=== PATIENT | male | born 1950 | race Caucasian/White ===

== ENCOUNTER → 2016-11-02 | Outpatient (CLI) | payer BC ==
[~2016-11-02] MED LIST: ACET-1256 PO; AMR2 PO; ATOR10TA88 PO; B-COTAB18 PO; CHOL400T PO; FEBU40TA PO; GLCSR500 PO; GLIM1TAB PO; LISI20TA55 PO; LSN/2025 PO; METF500T5 PO; PRT40 PO; SITA1TAB27 PO
[2016-11-02 10:52] LABS: BASO % 0.3 %; BASO ABS # 0.02 K/uL (0-0.2); COMPLETE YES; EOS % 1.7 %; IG% 0.5 %; LYMPH % 42.4 %; LYMPH ABS # 2.53 K/uL (1.2-3.4); MEAN CELL VOLUME 84.7 fL (80-100); MEAN CORPUSCULAR HEMOGLOBIN 28.8 pg (25-34); MEAN PLATELET VOLUME 12.4 fL (7.4-10.4); MONO % 7.9 %; NEUT % 47.2 %; PLATELET COUNT 150 K/uL (130-400); WHITE BLOOD COUNT 5.97 K/uL (4.8-10.8)
[2016-11-02 11:05] LABS: ALT/SGPT 37 U/L (12-78); AST/SGOT 21 U/L (15-37); BLOOD UREA NITROGEN 26 mg/dl (7-18); BUN/CREATININE RATIO 19.7 (10-20); CALCIUM 9.1 mg/dl (8.5-10.1); CARBON DIOXIDE 29 mmol/L (21-32); CHLORIDE 102 mmol/L (98-107); GLUCOSE 164 mg/dl (70-99); POTASSIUM 4.2 mmol/L (3.5-5.1); SODIUM 136 mmol/L (136-145)
[2016-11-02 11:08] LABS: ALB/GLOB RATIO 0.9 (0.9-2); ALKALINE PHOSPHATASE 57 U/L (45-117); CHOLESTEROL 119 mg/dl (0-200); CHOLESTEROL/HDL RATIO 2.6; HDL CHOLESTEROL 45 mg/dl; LDL CHOLESTEROL CALCULATED 19 mg/dl; TRIGLYCERIDES 276 mg/dl (0-150); VERY LOW DENSITY LIPOPROT CALC 55 mg/dl
[2016-11-02 11:28] LABS: ESTIMATED AVERAGE GLUCOSE 148 mg/dl; HA1C FLAG Normal (Normal)
[2016-11-02 11:29] LABS: RATIO 78.9 mcg/mg (0-30.0)
== END | disposition home or self-care (01) ==
LOC: C.LABBC 08:10
PROVIDERS: ATTEND Internal Medicine Pulmonary Disease
DX: E11.9 Type 2 diabetes mellitus without complications (principal); M10.9 Gout, unspecified

== ENCOUNTER 2016-12-06 08:44 | Inpatient (IN) | payer BC, OTHER ==
[~2016-12-06] VITALS: Ht 188 cm; Wt 97.2 kg
[~2016-12-06 08:44] MED LIST changes: -B-COTAB18 PO; -CHOL400T PO; -GLIM1TAB PO; -LSN/2025 PO; -METF500T5 PO
[2016-12-06] MEDS ORDERED: ATOR10TA88 PO (09:48)
[2016-12-06] MEDS ORDERED: METF500T5 PO (09:48)
[2016-12-06] MEDS ORDERED: CHOL400T PO (09:48)
[2016-12-06] MEDS ORDERED: GLIM1TAB PO (09:48)
[2016-12-06] MEDS ORDERED: LSN/2025 PO (09:48)
[2016-12-06] MEDS ORDERED: FEBU40TA PO (09:48)
[2016-12-06] MEDS ORDERED: B-COTAB18 PO (09:48)
[2016-12-06] MEDS ORDERED: SODIUM CHLORIDE 0.9% 1000ML 1,000 ML IV STA (09:53)
[2016-12-06 10:02] LABS: BASO % 0.4 %; BASO ABS # 0.03 K/uL (0-0.2); COMPLETE YES; EOS % 1.1 %; HEMATOCRIT 41.5 % (42-52); IG% 0.4 %; LYMPH % 29.1 %; LYMPH ABS # 2.31 K/uL (1.2-3.4); MEAN CORPUSCULAR HGB CONC 34.9 g/dl (32-36); MONO % 6.5 %; NEUT % 62.5 %; PLATELET COUNT 162 K/uL (130-400); WHITE BLOOD COUNT 7.94 K/uL (4.8-10.8)
[2016-12-06 10:22] LABS: BUN/CREATININE RATIO 29.4 (10-20); CREATININE 1.4 mg/dl (0.60-1.40); POTASSIUM 3.8 mmol/L (3.5-5.1)
[2016-12-06 10:42] LABS: INR 1.1 (0.9-1.1); PARTIAL THROMBOPLASTIN RATIO 1.1; PROTHROMBIN TIME (PATIENT) 11.4 SECONDS (9.0-12.0)
--- NOTE | 2016-12-06 10:54 | EMERGENCY ROOM VISIT NOTE ---
History Report prepared by Jaden: Javier Jaffe Under the Supervision of: Dr. Roberth Strauss D.O. First contact with patient: 08:59 Chief Complaint: RECTAL BLEEDING Stated Complaint: BLEEDING FROM RECTUM History of Present Illness The patient is a 66 year old male who presents to the Emergency Room with complaints of intermittent episodes of rectal bleeding beginning four days ago. He had a colonoscopy about two weeks ago and had several polyps removed. He states that he noticed blood in his stool four days ago. The patient had blood work drawn four days ago which appeared normal. He states that he only noticed blood on his toilet paper three days ago. He states that his bleeding resolved two days ago, but then returned yesterday. The patient's most recent bowel movement was two hours ago which was bloody. He denies lightheadedness or LOC. Source of History: patient Onset: Four days ago Position: other (rectum) Quality: other (bleeding) Timing: intermittent Associated Symptoms: No LOC Note: The patient denies lightheadedness. Review of Systems See HPI for pertinent positives & negatives. A total of 10 systems reviewed and were otherwise negative. Past Medical & Surgical Medical Problems: (1) Chest pain (2) Diabetes (3) Hypercholesterolemia (4) Hypertension Family History Hypertension Social History Smoking Status: Never Smoker Marital Status: Current/Historical Medications Scheduled Atorvastatin (Lipitor), 10 MG PO DAILY B-Complex Vitamins (Vitamin B Complex), 1 TAB PO DAILY Cholecalciferol (Vitamin D), 400 UNITS PO DAILY Febuxostat (Uloric), 40 MG PO DAILY Glimepiride (Amaryl), 2 MG PO DAILY Hctz/Lisinopril (Zestoretic 20MG/25MG), 1 TAB PO DAILY Metformin Hcl Er (Glucophage Er), 500 MG PO TIDM Allergies Coded Allergies: Allopurinol (Verified Allergy, Intermediate, HIVES, 12/06/16) Physical Exam Vital Signs Date Time Temp Pulse Resp B/P (MAP) Pulse Ox O2 Delivery O2 Flow Rate FiO2 12/06/16 11:30 98 Room Air 12/06/16 10:30 97 16 135/88 98 Room Air 12/06/16 09:48 104 20 119/97 99 Room Air 12/06/16 09:24 135 12/06/16 08:48 37.1 140 20 154/91 100 Room Air Physical Exam CONSTITUTIONAL/VITAL SIGNS: Reviewed / noted above. GENERAL: Non-toxic in appearance. INTEGUMENTARY: Warm, dry, and [place]. HEAD: Normocephalic. EYES: without scleral icterus or trauma. ENT/OROPHARYNX: clear and moist. LYMPHADENOPATHY/NECK: Is supple without lymphadenopathy or meningismus. RESPIRATORY: Lungs clear and equal. CARDIOVASCULAR: Regular rate and rhythm. GI/ABDOMEN: Soft and nontender. No organomegaly or pulsatile mass. No rebound or guarding. Normal bowel sounds. RECTAL: Gross dark blood. EXTREMITIES: Warm and well perfused. BACK: No CVA tenderness. NEUROLOGICAL: Intact without focal deficits. PSYCHIATRIC: normal affect. MUSCULOSKELETAL: Normally developed with good muscle tone. Medical Decision & Procedures Laboratory Results 12/06/16 09:40 Red Blood Count 5.00, Mean Corpuscular Volume 83.0, Mean Corpuscular Hemoglobin 29.0, Mean Corpuscular Hemoglobin Concent 34.9, Mean Platelet Volume 12.0, Neutrophils (%) (Auto) 62.5, Lymphocytes (%) (Auto) 29.1, Monocytes (%) (Auto) 6.5, Eosinophils (%) (Auto) 1.1, Basophils (%) (Auto) 0.4, Neutrophils # (Auto) 4.96, Lymphocytes # (Auto) 2.31, Monocytes # (Auto) 0.52, Eosinophils # (Auto) 0.09, Basophils # (Auto) 0.03 12/06/16 09:40 Test 12/06/16 09:40 12/06/16 10:15 White Blood Count 7.94 K/uL (4.8-10.8) Red Blood Count 5.00 M/uL (4.7-6.1) Hemoglobin 14.5 g/dL (14.0-18.0) Hematocrit 41.5 % (42-52) Mean Corpuscular Volume 83.0 fL (80-100) Mean Corpuscular Hemoglobin 29.0 pg (25-34) Mean Corpuscular Hemoglobin Concent 34.9 g/dl (32-36) Platelet Count 162 K/uL (130-400) Mean Platelet Volume 12.0 fL (7.4-10.4) Neutrophils (%) (Auto) 62.5 % Lymphocytes (%) (Auto) 29.1 % Monocytes (%) (Auto) 6.5 % Eosinophils (%) (Auto) 1.1 % Basophils (%) (Auto) 0.4 % Neutrophils # (Auto) 4.96 K/uL (1.4-6.5) Lymphocytes # (Auto) 2.31 K/uL (1.2-3.4) Monocytes # (Auto) 0.52 K/uL (0.11-0.59) Eosinophils # (Auto) 0.09 K/uL (0-0.5) Basophils # (Auto) 0.03 K/uL (0-0.2) RDW Standard Deviation 41.9 fL (36.4-46.3) RDW Coefficient of Variation 13.9 % (11.5-14.5) Immature Granulocyte % (Auto) 0.4 % Immature Granulocyte # (Auto) 0.03 K/uL (0.00-0.02) Anion Gap 10.0 mmol/L (3-11) Est Creatinine Clear Calc Drug Dose 61.2 ml/min Estimated GFR () 60.7 Estimated GFR (Non- 52.4 BUN/Creatinine Ratio 29.4 (10-20) Calcium Level 9.0 mg/dl (8.5-10.1) Total Bilirubin 0.7 mg/dl (0.2-1) Direct Bilirubin 0.2 mg/dl (0-0.2) Aspartate Amino Transf (AST/SGOT) 18 U/L (15-37) Alanine Aminotransferase (ALT/SGPT) 29 U/L (12-78) Alkaline Phosphatase 47 U/L (45-117) Total Protein 7.5 gm/dl (6.4-8.2) Albumin 3.8 gm/dl (3.4-5.0) Prothrombin Time 11.4 SECONDS (9.0-12.0) Prothromb Time International Ratio 1.1 (0.9-1.1) Activated Partial Thromboplast Time 27.8 SECONDS (21.0-31.0) Partial Thromboplastin Ratio 1.1 Laboratory results as stated above per my review. Medications Administered Medications (Trade) Dose Ordered Sig/Augusto Route Start Time Stop Time Status Last Admin Dose Admin Sodium Chloride 1,000 ml @ 999 mls/hr Q1H1M STAT IV 12/06/16 09:53 12/06/16 10:53 DC 12/06/16 09:53 999 MLS/HR ECG Indication: other (GI bleed) Rate (beats per minute): 129 Rhythm: sinus tachycardia Findings: PAC, no acute ischemic change ED Course 09: Previous medical records were reviewed. The patient was evaluated in room B6. A complete history and physical examination was performed. 0953: Ordered Sodium Chloride 1000 ml @ 999 mls/hr IV. 1100: On reevaluation, the patient is resting comfortably. I discussed the results and findings with him. He verbalized agreement of the treatment plan. I spoke [place] Littlejohn [place] [facility] [place]. The patient will be evaluated for further management and care. Medical Decision Differential diagnosis: Etiologies such as diverticulosis, AVM, coagulopathy, colitis, inflammatory bowel disease, malignancy, Ai-Hernández tear, esophagitis, peptic ulcer disease , variceal bleed, gastritis, epistaxis, fissure, hemorrhoids, as well as others were entertained. This is a 66-year-old male who presents to the ED with a chief complaint of rectal bleeding. The patient had a colonoscopy on 11/23/16. He had 2 polyps removed. One of the pulse with a rather large. The patient states that he developed bleeding 4 days ago that stopped 2 days ago. He had a recurrence of bleeding yesterday morning and had 4 episodes between yesterday morning and this morning. The patient states that his initial bleeding was in the morning yesterday and then a second episode at 6 PM, third episode at 11 PM and then an episode at 7 AM this morning. He denies having any shortness of breath, chest pains or lightheadedness. His initial vital signs revealed a tachycardia with a heart rate around 140. The patient's twelve-lead EKG shows a sinus tach at a rate of 129. Rectal exam shows gross dark blood. The patient was treated with 1 L of normal saline IV. Lab work prior to the IV fluids reveals a hemoglobin of 14.5. It was 15.64 days ago. The BUN today is 41. Rest of his blood work was unremarkable. The patient will be seen by the hospitalist service. I did speak with Dr. Anderson from GI who recommended the patient be brought into the hospital for further evaluation. Medication Reconcilliation Current Medication List: was personally reviewed by me Blood Pressure Screening Patient's blood pressure: Elevated blood pressure Blood pressure disposition: Elevated BP felt to be situational Consults Time Called: 1042 Consulting Physician: Dr. Lai -GI Returned Call: [phone] Discussed the patient's case. Dr. Lai recommends that the patient be admitted for further evaluation. Additional Consults: Time Called: 1055 Consulted Physician: Dr. Littlejohn [place] Returned Call: [phone] Additional Comments: Discussed the patient's case. The patient will be evaluated for further treatment and disposition. Impression Primary Impression: Lower GI bleed Scribe Attestation The scribe's documentation has been prepared under my direction and personally reviewed by me in its entirety. I confirm that the note above accurately reflects all work, treatment, procedures, and medical decision making performed by me. Departure Information Dispostion Being Evaluated By Hospitalist Referrals No Doctor, Assigned (PCP) Patient Instructions My [facility]
[2016-12-06 11:30] VITALS: O2SAT 98; Ht 188 cm; Wt 97.2 kg
[2016-12-06] MEDS ORDERED: GLUCOSE 10 TABS/TUBE PO PRN (11:45)
[2016-12-06] MEDS ORDERED: GLUCAGON FOR INJ 1 MG VIAL SQ PRN (11:45)
[2016-12-06] MEDS ORDERED: ONDANSETRON INJ 2 MG/ML 2 ML VIAL IV PRN (11:45)
[2016-12-06] MEDS ORDERED: GLUCOSE 40% GEL 15 GM TUBE PO PRN (11:45)
[2016-12-06] MEDS ORDERED: DEXTROSE 50% 50 ML SYR IV PRN (11:45)
[2016-12-06] MEDS ORDERED: ACETAMINOPHEN IV 100 ML IV PRN (11:45)
--- NOTE | 2016-12-06 11:56 | History and Physical ---
History & Physical Date & Time of Service: Dec 06, 2016 at 11:44 Chief Complaint: Bleeding From Rectum Primary Care Physician: Eric Melgoza M.D. History of Present Illness Source: patient, spouse The patient is a 66-year-old male who presents to the emergency department with several episodes of bright red blood per rectum that began 4 days prior to arrival, which was also 9 days after having had a colonoscopy with 2 polyps removed. The patient's first episode of heavy bleeding was 4 days ago. 3 days ago the bleeding was tapering, and then 2 days ago the bleeding was stopped. Yesterday, 12 days after colonoscopy, he developed a large volume of bright red blood per rectum, and has continued somewhat into today. He called the doctor' s office today, and was advised to come to emergency department for assessment. He denies any abdominal pain or pelvic pain, nausea or vomiting, lightheadedness or dizziness, loss of consciousness, blood in urine, numbness or tingling in arms or legs, or generalized weakness. Past Medical/Surgical History Medical Problems: (1) Diabetes Status: Chronic (2) Hypercholesterolemia Status: Chronic (3) Hypertension Status: Chronic Family History Hypertension Social History Smoking Status: Never Smoker Smokeless Tobacco Use: No Alcohol Use: none Drug Use: none Marital Status: Housing status: lives with family Immunizations History of Influenza Vaccine: Yes Influenza Vaccine Date: Dec 02, 2010 History of Tetanus Vaccine?: UNCERTAIN OF DATE History of Pneumococcal: No History of Hepatitis B Vaccine: HAD APPROX 10 YEARS AGO Multi-Drug Resistant Organisms History of MDRO: No Allergies Coded Allergies: Allopurinol (Verified Allergy, Intermediate, HIVES, 12/06/16) Home Medications Scheduled Atorvastatin (Lipitor), 10 MG PO DAILY B-Complex Vitamins (Vitamin B Complex), 1 TAB PO DAILY Cholecalciferol (Vitamin D), 400 UNITS PO DAILY Febuxostat (Uloric), 40 MG PO DAILY Glimepiride (Amaryl), 2 MG PO DAILY Hctz/Lisinopril (Zestoretic 20MG/25MG), 1 TAB PO DAILY Metformin Hcl Er (Glucophage Er), 500 MG PO TIDM Review of Systems The patient denies chest pain, palpitations, shortness of breath, cough, lower extremity swelling, vision change, hearing change, sore throat, fevers, chills, sweats, weight change, fatigue, nausea, vomiting, abdominal pain, pelvic pain, blood in urine, dysuria, urinary frequency or urgency, lightheadedness, dizziness, headache, memory loss, rash, abnormal bruising, imbalance, focal or generalized weakness, numbness or tingling in arms or legs, generalized arthralgias or myalgias, back or neck pain, or night sweats. The review of systems is otherwise negative other than for that already noted above, and at least 10 systems have been reviewed. Physical Exam Vital Signs Date Time Temp Pulse Resp B/P (MAP) Pulse Ox O2 Delivery O2 Flow Rate FiO2 12/06/16 10:30 97 16 135/88 98 Room Air 12/06/16 09:48 104 20 119/97 99 Room Air 12/06/16 09:24 135 12/06/16 08:48 37.1 140 20 154/91 100 Room Air The patient is awake, well-developed and adequately nourished, alert and oriented 3, normocephalic and atraumatic, lying in bed and in no acute distress. HEENT--PERRL, EOMI, mucous membranes and oropharynx dry. Neck--supple, no JVD or bruits, thyroid normal, trachea midline, no adenopathy. Heart--normal S1 and S2, occasional extra beats, no murmurs, rubs or gallops. Lungs--clear bilaterally with good air movement, no respiratory distress, no accessory muscle use. Abdomen--normal bowel sounds and soft, nontender and nondistended, no hernias or masses, no organomegaly and mildly obese. Extremities--no cyanosis, clubbing or edema. There are good distal pulses b/l. Dermatologic--normal skin turgor, normal color, warm and dry, no abnormal lymph nodes, no rash. Neurologic--cranial nerves II through XII grossly intact. Rheumatologic--normal range of motion, nontender, muscles and joints. Psychiatric--normal affect. Diagnostics Laboratory Results Results Past 24 Hours Test 12/06/16 09:40 12/06/16 10:15 12/06/16 11:40 Range/Units White Blood Count 7.94 4.8-10.8 K/uL Red Blood Count 5.00 4.7-6.1 M/uL Hemoglobin 14.5 14.0-18.0 g/dL Hematocrit 41.5 42-52 % Mean Corpuscular Volume 83.0 80-100 fL Mean Corpuscular Hemoglobin 29.0 25-34 pg Mean Corpuscular Hemoglobin Concent 34.9 32-36 g/dl Platelet Count 162 130-400 K/uL Mean Platelet Volume 12.0 7.4-10.4 fL Neutrophils (%) (Auto) 62.5 % Lymphocytes (%) (Auto) 29.1 % Monocytes (%) (Auto) 6.5 % Eosinophils (%) (Auto) 1.1 % Basophils (%) (Auto) 0.4 % Neutrophils # (Auto) 4.96 1.4-6.5 K/uL Lymphocytes # (Auto) 2.31 1.2-3.4 K/uL Monocytes # (Auto) 0.52 0.11-0.59 K/uL Eosinophils # (Auto) 0.09 0-0.5 K/uL Basophils # (Auto) 0.03 0-0.2 K/uL RDW Standard Deviation 41.9 36.4-46.3 fL RDW Coefficient of Variation 13.9 11.5-14.5 % Immature Granulocyte % (Auto) 0.4 % Immature Granulocyte # (Auto) 0.03 0.00-0.02 K/uL Sodium Level 136 136-145 mmol/L Potassium Level 3.8 3.5-5.1 mmol/L Chloride Level 104 98-107 mmol/L Carbon Dioxide Level 22 21-32 mmol/L Anion Gap 10.0 3-11 mmol/L Blood Urea Nitrogen 41 7-18 mg/dl Creatinine 1.40 0.60-1.40 mg/dl Est Creatinine Clear Calc Drug Dose 61.2 ml/min Estimated GFR () 60.7 Estimated GFR (Non- 52.4 BUN/Creatinine Ratio 29.4 10-20 Random Glucose 193 70-99 mg/dl Calcium Level 9.0 8.5-10.1 mg/dl Total Bilirubin 0.7 0.2-1 mg/dl Direct Bilirubin 0.2 0-0.2 mg/dl Aspartate Amino Transf (AST/SGOT) 18 15-37 U/L Alanine Aminotransferase (ALT/SGPT) 29 12-78 U/L Alkaline Phosphatase 47 45-117 U/L Total Protein 7.5 6.4-8.2 gm/dl Albumin 3.8 3.4-5.0 gm/dl Prothrombin Time 11.4 9.0-12.0 SECONDS Prothromb Time International Ratio 1.1 0.9-1.1 Activated Partial Thromboplast Time 27.8 21.0-31.0 SECONDS Partial Thromboplastin Ratio 1.1 EKG EKG shows inverted P waves inferiorly and laterally at 129 bpm, suggesting junctional tachycardia. Impression Assessment and Plan Lower GI bleed/hematochezia/beginning 4 days ago, 9 days after colonoscopy with removal of 2 polyps-- Admit to the telemetry unit for close blood pressure monitoring. H&H every 6 hours. Type and screen Nothing by mouth Protonix IV and famotidine IV. Zofran 4 mg IV every 6 hours when necessary. Acetaminophen 1000 mg IV every 8 hours when necessary. Consult Dr. Ferraro from gastroenterology. Diabetes mellitus-- Hold glimepiride and metformin ER. Place on Accu-Cheks before meals and at bedtime with NovoLog coverage per scale. Hyperlipidemia-- Hold atorvastatin while nothing by mouth. Hypertension-- Hold lisinopril/HCTZ. Hydralazine 10 mg IV every 6 hours when necessary systolic blood pressure greater than 160. Hyperuricemia-- Hold uloric. Level of Care Telemetry Advanced Directives Existing Advance Directive: No Existing Living Will: No Existing Power of Refrigerated National Truck Driver: No Resuscitation Status FULL RESUSCITATION VTE Prophylaxis VTE Risk Assessment Done? Y/N: Yes Risk Level: Low Given or contraindicated: SCD's Social Service Consult None Apply
[2016-12-06] MEDS ORDERED: HydrALAZINE HCL 20 MG/ML VIAL IV. PRN (12:00)
[2016-12-06] MEDS ORDERED: METOPROLOL TARTRATE 1 MG/ML VIAL IV PRN (12:00)
[2016-12-06] MEDS ORDERED: PANTOprazole INJ 40 MG in SYRINGE 0 ML IV ONE (12:30)
[2016-12-06 13:00] VITALS: BP 179/90; PULSE 94; TEMP 37; O2SAT 95
[2016-12-06] MEDS: NSS + 20MEQ KCL 1000ML 1,000 ML IV SCH ×2 (14:19→21:16)
[2016-12-06] MEDS: FAMOTIDINE IV INJ 20 MG in DEXTROSE 5% 100ML 100 ML IV SCH (14:19)
[2016-12-06] MEDS ORDERED: LAVAGE SOLUTION 4000ML PO SCH (15:15)
--- NOTE | 2016-12-06 15:19 | Gastrointestinal Consultation ---
Gastrointestinal Consultation Date of Consultation: Dec 06, 2016 Consulting Physician: DR Mervin Lai Reason for Consultation: GI Bleeding History of Present Illness Patient is a 66 year old male with CC of GI bleeding. He had colonoscopy for fhx of polyps and 2 polyps noted both tubular adenoma. A 12 mm cecal polyp removed and 3 clips placed. A 6 mm polyp at 50 cm removed with hot snare. Few sigmoid diverticula noted. Pt did well until 12/02/16 noted to pass what seemed like large amount of red blood and had CBC as outpt hgb 15.6. 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 However, yesterday am again large red bloody stools in am and 6pm. Less amount at 11 pm and this am 0800. Came to ER with Hgb 14.5 but tachycardic in 140s. With hydration Hgb 13.1 at 1323. Stool mixed with the red is dark. No abd pain. No dysphagia. Lost couple lbs over last few days. No n/v no fever. No shortness of breath or lightheadedness. Past Medical/Surgical History Medical Problems: (1) Lower GI bleed Status: Acute (2) Precordial chest pain Status: Acute Family History Hypertension Social History Smoking Status: Never Smoker Drug Use: none Marital Status: Allergies Coded Allergies: Allopurinol (Verified Allergy, Intermediate, HIVES, 12/06/16) Current Medications Home Meds and Scripts Medications Dose Route/Sig Max Daily Dose Days Date Category Dose Instructions Vitamin D (Cholecalciferol) 400 Unit Tab 400 Units PO DAILY 12/06/16 Reported Vitamin B Complex (B-Complex Vitamins) 1 Tab Tab 1 Tab PO DAILY 12/06/16 Reported Glucophage Er (Metformin HCl) 500 Mg Tab 500 Mg PO TIDM 12/06/16 Reported Zestoretic 20MG/25MG (HCTZ/Lisinopril) 1 Ea Tab 1 Tab PO DAILY 12/06/16 Reported Amaryl (Glimepiride) 1 Mg Tab 2 Mg PO DAILY 12/06/16 Reported TWO 1 MG TABLETS, PER PT Uloric (Febuxostat) 40 Mg Tab 40 Mg PO DAILY 12/06/16 Reported Lipitor (Atorvastatin Calcium) 10 Mg Tab 10 Mg PO DAILY 12/06/16 Reported Review of Systems ROS 10 systems negative except as in HPI. Physical Exam Date Time Temp Pulse Resp B/P (MAP) Pulse Ox O2 Delivery O2 Flow Rate FiO2 12/06/16 13:00 37.0 94 16 179/90 (119) 95 Room Air 12/06/16 13:00 95 Room Air 12/06/16 12:30 97 16 138/94 98 Room Air 12/06/16 12:00 93 16 178/96 97 Room Air 12/06/16 11:31 97 16 161/111 99 Room Air 12/06/16 11:30 98 Room Air 12/06/16 11:00 94 20 139/104 97 12/06/16 10:30 97 16 135/88 98 Room Air 12/06/16 09:48 104 20 119/97 99 Room Air 12/06/16 09:24 135 12/06/16 08:48 37.1 140 20 154/91 100 Room Air General Appearance: WD/WN, no apparent distress Eyes: normal inspection, EOMI ENT: hearing grossly normal, pharynx normal Neck: supple, no adenopathy Respiratory/Chest: lungs clear, no respiratory distress Cardiovascular: regular rate, rhythm, no edema Abdomen: normal bowel sounds, non tender, soft, no organomegaly Extremities: normal range of motion Neurologic/Psych: freight breaker II-XII nml as tested, normal mood/affect, oriented x 3 Skin: normal color, no jaundice Laboratory Results Last 24 Hours Test 12/06/16 09:40 12/06/16 10:15 12/06/16 13:23 White Blood Count 7.94 K/uL Red Blood Count 5.00 M/uL Hemoglobin 14.5 g/dL 13.1 g/dL Hematocrit 41.5 % 38.0 % Mean Corpuscular Volume 83.0 fL Mean Corpuscular Hemoglobin 29.0 pg Mean Corpuscular Hemoglobin Concent 34.9 g/dl Platelet Count 162 K/uL Mean Platelet Volume 12.0 fL Neutrophils (%) (Auto) 62.5 % Lymphocytes (%) (Auto) 29.1 % Monocytes (%) (Auto) 6.5 % Eosinophils (%) (Auto) 1.1 % Basophils (%) (Auto) 0.4 % Neutrophils # (Auto) 4.96 K/uL Lymphocytes # (Auto) 2.31 K/uL Monocytes # (Auto) 0.52 K/uL Eosinophils # (Auto) 0.09 K/uL Basophils # (Auto) 0.03 K/uL RDW Standard Deviation 41.9 fL RDW Coefficient of Variation 13.9 % Immature Granulocyte % (Auto) 0.4 % Immature Granulocyte # (Auto) 0.03 K/uL Sodium Level 136 mmol/L Potassium Level 3.8 mmol/L Chloride Level 104 mmol/L Carbon Dioxide Level 22 mmol/L Anion Gap 10.0 mmol/L Blood Urea Nitrogen 41 mg/dl Creatinine 1.40 mg/dl Est Creatinine Clear Calc Drug Dose 61.2 ml/min Estimated GFR () 60.7 Estimated GFR (Non- 52.4 BUN/Creatinine Ratio 29.4 Random Glucose 193 mg/dl Calcium Level 9.0 mg/dl Total Bilirubin 0.7 mg/dl Direct Bilirubin 0.2 mg/dl Aspartate Amino Transf (AST/SGOT) 18 U/L Alanine Aminotransferase (ALT/SGPT) 29 U/L Alkaline Phosphatase 47 U/L Total Protein 7.5 gm/dl Albumin 3.8 gm/dl Prothrombin Time 11.4 SECONDS Prothromb Time International Ratio 1.1 Activated Partial Thromboplast Time 27.8 SECONDS Partial Thromboplastin Ratio 1.1 Impression A/P GI bleeding--likely lower from polyp site. Recommend bowel prep and most likely colonoscopy tomorrow. Proc and risks explained which include but not limited to medication reaction, bleeding, perforation, aspiration and missed lesions. Mentioned some increased risk of bleeding and perforation because of polypectomy sites. acute blood loss anemia--from GI bleeding--follow H and H and transfuse if needed. Diverticulosis--no diverticulitis clinically--another possible etiology of bleeding. colon polyps s/p resection--tubular adenoma--benign
[2016-12-06 16:00] VITALS: BP 139/89; PULSE 107; O2SAT 95
[2016-12-06 16:24] LABS: HEMATOCRIT 38.2 % (42-52)
[2016-12-06 16:49] LABS: MAGNESIUM 1.8 mg/dl (1.8-2.4); POTASSIUM 3.8 mmol/L (3.5-5.1)
[2016-12-06] MEDS: INSULIN ASPART 100 UNITS/ML 3 ML PEN SC SCH ×2 (16:57→21:00)
--- NOTE | 2016-12-06 17:59 | Cardiology Consultation ---
Cardiology Consultation Date of Consultation: Dec 06, 2016. Requesting Physician: Shelley Reason for Consultation: tachycardia Pt evaluation today including: conversation w/ patient, conversation w/ family , physical exam, chart review, lab review, review of studies, review of inpatient medication list, conversation w/ attending History of Present Illness The patient is a 66-year-old gentleman without any history of cardiac disease who was admitted to [facility] for gastrointestinal hemorrhage. The patient was noted on routine evaluation to have evidence of an irregular heartbeat. EKGs were obtained the patient was placed on telemetry. He was noted to have sustained episodes of a tachycardia of unclear etiology. Patient states that he is unaware of any irregularity in his heartbeat. He is generally not aware of any tachycardia. He does have a Fitbit and has been monitoring his heart rate. He does not report any notable elevations and states that his average heart rate hovers around 80 beats per minute. He he exercises regularly by walking. He is not perform more strenuous exertion but has not had any difficulty with walking recently. He has been improving his fitness by walking for longer distances recently. He denies any sense of limiting dyspnea. He has no symptoms of chest discomfort. He denies any symptoms of dizziness or lightheadedness. He has never suffered a syncopal episode except that associated with a subdural hematoma. This was several years ago. The mechanism was unclear. Generally speaking has been feeling well. He did undergo a routine screening colonoscopy with polypectomy. This apparently has resulted in some continued bleeding and he is currently scheduled for repeat colonoscopy tomorrow. 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 ACHS SC 12/06/16 16:00 01/05/17 15:59 Glucose (Glucose 40% Gel) UD PRN PO 12/06/16 11:45 01/05/17 11:44 Glucose (Glucose Chew Tab) 1 tabs UD PRN PO 12/06/16 11:45 01/05/17 11:44 Dextrose (Dextrose 50% 50ML Syringe) 50 ml UD PRN IV 12/06/16 11:45 01/05/17 11:44 Glucagon (Glucagon Inj) 1 mg UD PRN SQ 12/06/16 11:45 01/05/17 11:44 Acetaminophen 100 ml @ 400 mls/hr Q8H PRN IV 12/06/16 11:45 01/05/17 11:44 Pantoprazole Sodium 40 mg/ Syringe 10 ml @ 5 mls/min DAILY@11 IV 12/07/16 11:00 01/06/17 10:59 Famotidine 20 mg/ Dextrose 102 ml @ 200 mls/hr Q12H IV 12/06/16 14:00 01/05/17 13:59 12/06/16 14:19 200 MLS/HR Metoprolol Tartrate (Lopressor Iv) 5 mg Q4 PRN IV 12/06/16 12:00 01/05/17 11:59 Hydralazine HCl (HydrALAZINE INJ) 10 mg Q4H PRN IV. 12/06/16 12:00 01/05/17 11:59 12/06/16 15:34 10 MG Polyethylene Glycol/ Electrolytes (Golytely Soln) 16 dose UD PO 12/06/16 15:15 12/06/16 23:59 Physical Exam Vital Signs Past 12 Hours Date Time Temp Pulse Resp B/P (MAP) Pulse Ox O2 Delivery O2 Flow Rate FiO2 12/06/16 16:00 95 Room Air 12/06/16 16:00 107 16 139/89 (106) 95 Room Air 12/06/16 13:00 37.0 94 16 179/90 (119) 95 Room Air 12/06/16 13:00 95 Room Air 12/06/16 12:30 97 16 138/94 98 Room Air 12/06/16 12:00 93 16 178/96 97 Room Air 12/06/16 11:31 97 16 161/111 99 Room Air 12/06/16 11:30 98 Room Air 12/06/16 11:00 94 20 139/104 97 12/06/16 10:30 97 16 135/88 98 Room Air 12/06/16 09:48 104 20 119/97 99 Room Air 12/06/16 09:24 135 12/06/16 08:48 37.1 140 20 154/91 100 Room Air The patient is alert and oriented. Mood and affect appeared normal. He answered all questions appropriately. HEENT: Pupils are equal and reactive to light and accommodation. Extraocular movements are intact. The sclerae are anicteric. Neuro: Cranial nerves intact Neck: Patient's neck is supple. He has palpable carotid pulses bilaterally without bruits on auscultation. There is no evidence of jugular venous distention. The thyroid is not enlarged. Lungs: Clear to auscultation bilaterally. He has good air movement without use of accessory muscles. No rales wheezes or rhonchi. Cardiac: Heart demonstrates an irregular rate and rhythm. Normal S1 and S2. No murmurs on examination. Pulses: The patient has palpable radial pulses bilaterally that are equal in intensity Extremities: There was no evidence of hypoperfusion. There is no cyanosis or clubbing. There is no edema. Skin: I did not appreciate any rashes on examination today. Data Laboratory Results: Last 24 Hours Test 12/06/16 09:40 12/06/16 10:15 12/06/16 13:23 12/06/16 15:29 White Blood Count 7.94 K/uL Red Blood Count 5.00 M/uL Hemoglobin 14.5 g/dL 13.1 g/dL Hematocrit 41.5 % 38.0 % Mean Corpuscular Volume 83.0 fL Mean Corpuscular Hemoglobin 29.0 pg Mean Corpuscular Hemoglobin Concent 34.9 g/dl Platelet Count 162 K/uL Mean Platelet Volume 12.0 fL Neutrophils (%) (Auto) 62.5 % Lymphocytes (%) (Auto) 29.1 % Monocytes (%) (Auto) 6.5 % Eosinophils (%) (Auto) 1.1 % Basophils (%) (Auto) 0.4 % Neutrophils # (Auto) 4.96 K/uL Lymphocytes # (Auto) 2.31 K/uL Monocytes # (Auto) 0.52 K/uL Eosinophils # (Auto) 0.09 K/uL Basophils # (Auto) 0.03 K/uL RDW Standard Deviation 41.9 fL RDW Coefficient of Variation 13.9 % Immature Granulocyte % (Auto) 0.4 % Immature Granulocyte # (Auto) 0.03 K/uL Sodium Level 136 mmol/L Potassium Level 3.8 mmol/L Chloride Level 104 mmol/L Carbon Dioxide Level 22 mmol/L Anion Gap 10.0 mmol/L Blood Urea Nitrogen 41 mg/dl Creatinine 1.40 mg/dl Est Creatinine Clear Calc Drug Dose 61.2 ml/min Estimated GFR () 60.7 Estimated GFR (Non- 52.4 BUN/Creatinine Ratio 29.4 Random Glucose 193 mg/dl Calcium Level 9.0 mg/dl Total Bilirubin 0.7 mg/dl Direct Bilirubin 0.2 mg/dl Aspartate Amino Transf (AST/SGOT) 18 U/L Alanine Aminotransferase (ALT/SGPT) 29 U/L Alkaline Phosphatase 47 U/L Total Protein 7.5 gm/dl Albumin 3.8 gm/dl Prothrombin Time 11.4 SECONDS Prothromb Time International Ratio 1.1 Activated Partial Thromboplast Time 27.8 SECONDS Partial Thromboplastin Ratio 1.1 Bedside Glucose 136 mg/dl Test 12/06/16 16:16 Hemoglobin 13.1 g/dL Hematocrit 38.2 % Potassium Level 3.8 mmol/L Magnesium Level 1.8 mg/dl EKG: EKG demonstrates sinus rhythm alternating with what appears to be an ectopic atrial Telemetry reviewed: Sustained episodes of ectopic atrial tachycardia Assessment & Plan 1. Tachycardia: The P-wave morphology during the patient's tachycardia suggests a low right atrial focus. There is a possibility as represents a junctional tachycardia. His likely results for increased automaticity less likely would be reentry. He has no symptoms associated with the tachycardia. Review of the records in his phone suggested he may have had some brief episodes yesterday but certainly more this afternoon. Unclear whether he has these more frequently than that. He does not describe symptoms consistent with a cardiomyopathy and his exam is otherwise normal. I think we will obtain an echocardiogram tomorrow as the 1 potential problem associated with sustained episodes of this tachycardia would be development of a cardiomyopathy. He has no exertional symptoms to suggest heart failure. Unclear why he would have more of these episodes this evening. He otherwise appears to be comfortable and does not seem to have significant metabolic derangements. I think an attempt at rate control and suppression of the focus is warranted. Think we will start with some beta-blockade this evening and monitor his response. Calcium channel blockers also be a reasonable 1st choice. For continued sustained episodes despite therapy with these 2 agents or could consider antiarrhythmic therapy or more likely catheter based treatment. No indication for anticoagulation.
[2016-12-06 20:00] VITALS: O2SAT 95
[2016-12-06 20:08] VITALS: BP 170/100; PULSE 100; TEMP 36.8; O2SAT 95
[2016-12-06 20:41] LABS: CKMB/CK RATIO 2.7 (0-3.0)
[2016-12-06] MEDS: METOPROLOL TARTRATE 25 MG TAB PO SCH (21:16)
[2016-12-06 22:49] LABS: BASO % 0.2 %; BASO ABS # 0.02 K/uL (0-0.2); COMPLETE YES; EOS % 1.3 %; IG% 0.4 %; LYMPH % 30.5 %; LYMPH ABS # 2.61 K/uL (1.2-3.4); MEAN CELL VOLUME 83.1 fL (80-100); MEAN CORPUSCULAR HGB CONC 33.6 g/dl (32-36); MEAN PLATELET VOLUME 11.2 fL (7.4-10.4); MONO % 5.8 %; NEUT % 61.8 %; PLATELET COUNT 151 K/uL (130-400); RED BLOOD COUNT 3.97 M/uL (4.7-6.1); WHITE BLOOD COUNT 8.57 K/uL (4.8-10.8)
[2016-12-07] VITALS (8 sets, daily range): BP systolic 129–154; BP diastolic 65–96; PULSE 64–81; TEMP 36.6–36.8; O2SAT 94–100
[2016-12-07] MEDS: FAMOTIDINE IV INJ 20 MG in DEXTROSE 5% 100ML 100 ML IV SCH ×2 (01:39→15:16)
[2016-12-07] MEDS: METOPROLOL TARTRATE 25 MG TAB PO SCH ×3 (03:00→12:00)
[2016-12-07 04:03] LABS: BASO % 0.5 %; BASO ABS # 0.03 K/uL (0-0.2); COMPLETE YES; EOS % 2.3 %; HEMATOCRIT 31.5 % (42-52); IG% 0.5 %; LYMPH % 37.9 %; LYMPH ABS # 2.33 K/uL (1.2-3.4); MEAN CELL VOLUME 83.3 fL (80-100); MEAN CORPUSCULAR HEMOGLOBIN 27.5 pg (25-34); MONO % 6.4 %; NEUT % 52.4 %; PLATELET COUNT 142 K/uL (130-400); RED BLOOD COUNT 3.78 M/uL (4.7-6.1); WHITE BLOOD COUNT 6.14 K/uL (4.8-10.8)
[2016-12-07 04:49] LABS: ALB/GLOB RATIO 1.2 (0.9-2); ALKALINE PHOSPHATASE 34 U/L (45-117); ALT/SGPT 22 U/L (12-78); AST/SGOT 11 U/L (15-37); BLOOD UREA NITROGEN 27 mg/dl (7-18); BUN/CREATININE RATIO 24.9 (10-20); CALCIUM 7.4 mg/dl (8.5-10.1); CARBON DIOXIDE 22 mmol/L (21-32); CHLORIDE 108 mmol/L (98-107); GLUCOSE 140 mg/dl (70-99); MAGNESIUM 1.7 mg/dl (1.8-2.4); POTASSIUM 3.9 mmol/L (3.5-5.1); SODIUM 138 mmol/L (136-145)
[2016-12-07] MEDS: NSS + 20MEQ KCL 1000ML 1,000 ML IV SCH ×4 (05:30→23:01)
[2016-12-07] MEDS: INSULIN ASPART 100 UNITS/ML 3 ML PEN SC SCH ×4 (06:45→21:00)
[2016-12-07] MEDS ORDERED: MAGNESIUM CITRATE 296 ML/BTL PO STA (07:17)
--- NOTE | 2016-12-07 09:11 | ECHOCARDIOGRAM REPORT ---
*NOTICE TO RECEIVING [employer] This information is strictly Confidential and protected under [place] law. [place] law prohibits you from making any further disclosure of this information unless further disclosure is expressly permitted by the written consent of the person to whom it pertains or is authorized by law. A general authorization for the release of medical or other information is not sufficient for this purpose. Hospital accepts no responsibility if the information is made available to any other person, INCLUDING THE PATIENT. Interpretation Summary * Name: IMELDA JAMES Study Date: 12/07/2016 06:18 AM BP: 133/65 mmHg * Patient Location: .MSICU\S\E110\S\1 HR: 66 * : 1950 (M/d/yyy) Gender: Male Height: 74 in * Age: 66 yrs Ethnicity: [place] Weight: 217 lb * Ordering Physician: Ayaan Littlejohn * Referring Physician: Self, Referred * Performed By: Radha Terrell RDCS * * Reason For Study: Tachycardia and PAC. * BSA: 2.2 m2 * -- Conclusions -- * 1. Normal LV size. Borderline LV wall thickness. * 2. Normal LV systolic function. LVEF 55-60%. No regional wall motion abnormalities. * 3. Normal RV size and function. * 4. Mild aoritc regurgitation. * 5. Mild mitral regurgitation. * 6. Normal estimated PA and RA pressures. * 7. Mildly dilated aortic arch (4.4 cm). * 8. Compared with prior study on 10/27/2015: No significant changes. Procedure Details * A complete two-dimensional transthoracic echocardiogram was performed (2D, M-mode, Doppler and color flow Doppler). Left Ventricle * The left ventricle is grossly normal size. * There is borderline concentric left ventricular hypertrophy. * Ejection Fraction = 55-60%. * No regional wall motion abnormalities noted. Right Ventricle * The right ventricle is grossly normal size. * The right ventricular systolic function is normal as assessed by tricuspid annular plane systolic excursion (TAPSE) (normal >1.5 cm). Atria * The left atrium is mildly dilated. * Right atrial size is normal. Mitral Valve * The mitral valve is grossly normal. * There is no mitral valve stenosis. * There is mild mitral regurgitation. Tricuspid Valve * The tricuspid valve is not well visualized, but is grossly normal. * There is no tricuspid stenosis. * There is trace tricuspid regurgitation. * Right ventricular systolic pressure is normal. Aortic Valve * The aortic valve is trileaflet. * Aortic valve sclerosis mild, without significant aortic valvular stenosis. * No hemodynamically significant valvular aortic stenosis. * Mild aortic regurgitation. Pulmonic Valve * The pulmonary valve is inadequately visualized, but the Doppler data is adequate for interpretation. * Pulmonic stenosis is absent. * There is no significant pulmonary regurgitation. Great Vessels * Ascending aorta of normal dimension * Mildly dilated aortic arch. * Aortic arch 4.4 cm. Pericardium/Pleural * There is no pericardial effusion. Great Vessels * Normal inferior vena cava size and collapsability with sniff indicates a normal right atrial pressure of 3 mmHg MMode 2D Measurements and Calculations IVSd 0.97 cm IVSs 1.3 cm LVIDd 4.0 cm LVIDs 2.5 cm LVPWd 1.2 cm LVPWs 1.6 cm IVS/LVPW 0.84 FS 37.5 % EDV(Teich) 68.6 ml ESV(Teich) 21.9 ml EF(Teich) 68.1 % EDV(cubed) 62.3 ml ESV(cubed) 15.2 ml EF(cubed) 75.6 % % IVS thick 34.8 % % LVPW thick 42.3 % LV mass(C)d 137.1 grams LV mass(C)dI 60.9 grams/m\S\2 LV mass(C)s 121.6 grams LV mass(C)sI 54.1 grams/m\S\2 CO(Teich) 3.1 l/min CI(Teich) 1.4 l/min/m\S\2 SV(Teich) 46.7 ml SI(Teich) 20.8 ml/m\S\2 CO(cubed) 3.1 l/min CI(cubed) 1.4 l/min/m\S\2 SV(cubed) 47.1 ml SI(cubed) 20.9 ml/m\S\2 Ao root diam 3.3 cm Ao root area 8.7 cm\S\2 ACS 2.4 cm LA dimension 3.8 cm LA/Ao 1.2 LVAd ap4 46.0 cm\S\2 LVLd ap4 10.1 cm EDV(MOD-sp4) 173.0 ml EDV(sp4-el) 129.3 ml LVAs ap4 31.2 cm\S\2 LVLs ap4 9.3 cm ESV(MOD-sp4) 94.1 ml ESV(sp4-el) 59.8 ml EF(MOD-sp4) 45.6 % EF(sp4-el) 53.8 % LVAd ap2 36.3 cm\S\2 LVLd ap2 9.4 cm EDV(MOD-sp2) 119.0 ml EDV(sp2-el) 100.4 ml LVAs ap2 24.5 cm\S\2 LVLs ap2 8.5 cm ESV(MOD-sp2) 66.1 ml ESV(sp2-el) 47.2 ml EF(MOD-sp2) 44.5 % EF(sp2-el) 52.9 % CO(MOD-sp4) 5.2 l/min CI(MOD-sp4) 2.3 l/min/m\S\2 SV(MOD-sp4) 78.9 ml SI(MOD-sp4) 35.1 ml/m\S\2 CO(MOD-sp2) 3.5 l/min CI(MOD-sp2) 1.6 l/min/m\S\2 SV(MOD-sp2) 52.9 ml SI(MOD-sp2) 23.5 ml/m\S\2 CO(sp4-el) 4.6 l/min CI(sp4-el) 2.0 l/min/m\S\2 SV(sp4-el) 69.5 ml SI(sp4-el) 30.9 ml/m\S\2 CO(sp2-el) 3.5 l/min CI(sp2-el) 1.6 l/min/m\S\2 SV(sp2-el) 53.1 ml SI(sp2-el) 23.6 ml/m\S\2 Doppler Measurements and Calculations MV E max jim 85.9 cm/sec MV A max jim 92.6 cm/sec MV E/A 0.93 MV dec time 0.27 sec AI max jim 423.9 cm/sec AI max PG 71.9 mmHg AI dec slope 227.1 cm/sec\S\2 AI P1/2t 546.7 msec LV V1 max PG 3.6 mmHg LV V1 max 94.6 cm/sec PA V2 max 124.7 cm/sec PA max PG 6.5 mmHg TR max jim 221.6 cm/sec
--- NOTE | 2016-12-07 09:13 | Clinical Documentation Query ---
TANK Santiago D : CLINICAL DOCUMENTATION QUERY Patient is a 66 year old male admitted for GI bleeding beginning 5 days ago, 10 days s/p colonoscopy with polypectomy x 2. GI consultation documentation included: "GI bleeding--likely lower from polyp site". Please clarify as suggested below in order to avoid uncertainty at time of discharge. In your clinical opinion is this patient being managed for: ( ) GI bleed likely from lower polypectomy site, a complication of care ( ) GI bleed likely from lower polypectomy site, expected, not a complication of care ( ) Not Agree ( ) Other explanation of clinical findings (Please Explain) ( ) Unable to determine (Please Define) ( ) Need to Discuss The medical record reflects the following clinical findings, treatment, and risk factors. Clinical Indicators: As above Treatment: IVF, IV PPI, GI consultation, serial hematology, I/O, daily weights Risk Factors: Recent polypectomy Please clarify and document your clinical opinion in the progress notes and discharge summary. Terms such as "probable", "suspected", "likely", "questionable", "possible", or "still to be ruled out" are acceptable. IF IN AGREEMENT, YOU MUST DOCUMENT ABOVE DIAGNOSTIC STATEMENT IN DAILY PROGRESS NOTES AND DISCHARGE SUMMARY. This document is not part of the patient's record. Thank You, Tank Garnica RN [phone]
[2016-12-07] MEDS: PANTOprazole INJ 40 MG in SYRINGE 0 ML IV SCH ×2 (11:00→15:16)
[2016-12-07 11:55] LABS: HEMATOCRIT 29.7 % (42-52)
--- NOTE | 2016-12-07 12:55 | Endo History and Physical ---
History & Physical Date of Service: Dec 07, 2016. Chief Complaint: GI bleeding Referring Physician: History of Present Illness Pt with ongoing rectal bleeding with colon prep. NO more stool per patient. No abd pain, No SOB, no Chest pain. Past Surgical History Hx Cardiac Surgery: No Hx Abdominal Surgery: No Hx Post-Op Nausea and Vomiting: No Hx Cancer Surgery: No Hx Thoracic Surgery: No Hx Orthopedic: Yes (BROKEN left ANKLE 09/2000) Hx Urinary Tract Surgery: No Social History Smoking Status: Never Smoker Smokeless Tobacco Use: No Hx Substance Use: No Hx Alcohol Use: No Allergies Coded Allergies: Allopurinol (Verified Allergy, Intermediate, HIVES, 12/06/16) Current Medications Reported Home Medications Medications Dose Route/Sig Max Daily Dose Days Date Category Dose Instructions Vitamin D (Cholecalciferol) 400 Unit Tab 400 Units PO DAILY 12/06/16 Reported Vitamin B Complex (B-Complex Vitamins) 1 Tab Tab 1 Tab PO DAILY 12/06/16 Reported Glucophage Er (Metformin HCl) 500 Mg Tab 500 Mg PO TIDM 12/06/16 Reported Zestoretic 20MG/25MG (HCTZ/Lisinopril) 1 Ea Tab 1 Tab PO DAILY 12/06/16 Reported Amaryl (Glimepiride) 1 Mg Tab 2 Mg PO DAILY 12/06/16 Reported TWO 1 MG TABLETS, PER PT Uloric (Febuxostat) 40 Mg Tab 40 Mg PO DAILY 12/06/16 Reported Lipitor (Atorvastatin Calcium) 10 Mg Tab 10 Mg PO DAILY 12/06/16 Reported Vital Signs Weight (Kilograms): 98.700 Height (Feet): 6 Height (Inches): 2.00 Date Time Temp Pulse Resp B/P (MAP) Pulse Ox O2 Delivery O2 Flow Rate FiO2 12/07/16 04:00 96 Room Air 12/07/16 04:00 36.6 74 20 133/85 (101) 95 Room Air 12/07/16 00:00 36.6 74 18 129/74 (92) 96 Room Air 12/07/16 00:00 96 Room Air 12/06/16 20:08 36.8 100 18 170/100 (123) 95 Room Air 12/06/16 20:00 95 Room Air 12/06/16 16:00 95 Room Air 12/06/16 16:00 107 16 139/89 (106) 95 Room Air 12/06/16 13:00 37.0 94 16 179/90 (119) 95 Room Air 12/06/16 13:00 95 Room Air Physical Exam General Appearance: WD/WN, no apparent distress Respiratory/Chest: Respiratory effort: no dyspnea Auscultation: breath sounds normal Cardiovascular: Heart Auscultation: RRR, no murmurs Abdomen: Bowel Sounds: normal Inspection & Palpation: soft, non-distended, no tenderness, guarding & rebound, no masses Assessment and Plan GI bleeding--ongoing.Suspect post polypectomy. Colonoscopy with therapeutic intent.
[2016-12-07] MEDS ORDERED: LIDOCAINE HCL 2% 2 ML VIAL (20MG/ML) ONE (14:17)
[2016-12-07] MEDS ORDERED: PROPOFOL IV EMULSION 10 MG/ML 20 ML VIAL IV ONE ×2 (14:17)
--- NOTE | 2016-12-07 14:22 | GI REPORT ---
Procedure Date: 12/07/2016 1:04 PM Procedure: Colonoscopy Indications: Hematochezia, Post polypectomy 11/23/16. Medicines: Monitored Anesthesia Care Complications: No immediate complications. Estimated Blood Loss: Estimated blood loss: Greater than 100 mL requiring treatment with placement of hemostatic clip(s). Procedure: Pre-Anesthesia Assessment: - The risks and benefits of the procedure and the sedation options and risks were discussed with the patient. All questions were answered and informed consent was obtained. - Patient identification and proposed procedure were verified prior to the procedure by the physician, the nurse and the mailing specialist. The procedure was verified in the procedure room. - Procedure and risks explained to patient which include but not limited to medication reaction, bleeding, perforation, aspiration, and missed lesions. Prep was good. Washes and suctioning done as needed to get good visualization of the mucosa. Retroflexion to look at the distal rectum and anal canal done. Scope only advanced with lumen visualized. Judicious gas insufflation and gas removal done on way out. Slow withdrawal with careful examination of the mucosa. After I obtained informed consent, the scope was passed under direct vision. Throughout the procedure, the patient's blood pressure, pulse, and oxygen saturations were monitored continuously. The scope was introduced through the anus and advanced to the cecum, identified by appendiceal orifice and ileocecal valve. The colonoscopy was performed without difficulty. The patient tolerated the procedure well. The quality of the bowel preparation was fair to poor with fresh blood and clots throughout exam. Findings: Multiple small-mouthed diverticula were found in the left colon. Visible vessle was found in the cecum at site of polypectomy. One of original 3 clips noted. . To prevent bleeding further, seven hemostatic clips were successfully placed. Bleeding slowed after clips but could not get the site to stop bleeding completely A single (solitary) four mm ulcer was found at 50 cm proximal to the anus corresponding to polypectomyh site. . No bleeding was present. No stigmata of recent bleeding were seen. Red blood was found in the entire colon. The exam was otherwise without abnormality on direct and retroflexion views. Impression: - Diverticulosis in the left colon. - Visible vessel in cecum at site of polypectomy site.. Clips were placed with slowing of bleeding. - A single (solitary) ulcer at 50 cm proximal to the anus. - Blood in the entire examined colon. - The examination was otherwise normal on direct and retroflexion views. - No specimens collected. Recommendation: - Return patient to [facility] for ongoing care. Mervin Lai M.D. Mervin aLi MD 12/07/2016 2:22:24 PM This report has been signed electronically. Note Initiated On: 12/07/2016 1:04 PM I attest to the content of the Intraoperative Record and orders documented therein, exceptions below
--- NOTE | 2016-12-07 14:30 | Gastroenterology Progress Note ---
Progress Note Date of Service: Dec 07, 2016 Medications Current Inpatient Medications Medications (Trade) Dose Ordered Sig/Augusto Route Start Time Stop Time Status Last Admin Dose Admin Potassium Chloride/Sodium Chloride 1,000 ml @ 125 mls/hr Q8H IV 12/06/16 13:30 01/05/17 13:29 12/07/16 05:30 125 MLS/HR Ondansetron HCl (Zofran Inj) 4 mg Q6H PRN IV 12/06/16 11:45 01/05/17 11:44 Insulin Aspart (novoLOG ASPART) SLIDING SCALE If C... ACHS SC 12/06/16 16:00 01/05/17 15:59 Glucose (Glucose 40% Gel) UD PRN PO 12/06/16 11:45 01/05/17 11:44 Glucose (Glucose Chew Tab) 1 tabs UD PRN PO 12/06/16 11:45 01/05/17 11:44 Dextrose (Dextrose 50% 50ML Syringe) 50 ml UD PRN IV 12/06/16 11:45 01/05/17 11:44 Glucagon (Glucagon Inj) 1 mg UD PRN SQ 12/06/16 11:45 01/05/17 11:44 Acetaminophen 100 ml @ 400 mls/hr Q8H PRN IV 12/06/16 11:45 01/05/17 11:44 Pantoprazole Sodium 40 mg/ Syringe 10 ml @ 5 mls/min DAILY@11 IV 12/07/16 11:00 01/06/17 10:59 Famotidine 20 mg/ Dextrose 102 ml @ 200 mls/hr Q12H IV 12/06/16 14:00 01/05/17 13:59 12/07/16 01:39 200 MLS/HR Metoprolol Tartrate (Lopressor Iv) 5 mg Q4 PRN IV 12/06/16 12:00 01/05/17 11:59 Hydralazine HCl (HydrALAZINE INJ) 10 mg Q4H PRN IV. 12/06/16 12:00 01/05/17 11:59 12/06/16 15:34 10 MG Metoprolol Tartrate (Lopressor Tab) 25 mg Q6 PO 12/06/16 18:00 01/05/17 17:59 12/07/16 08:00 25 MG Objective Vital Signs Date Time Temp Pulse Resp B/P (MAP) Pulse Ox O2 Delivery O2 Flow Rate FiO2 12/07/16 04:00 96 Room Air 12/07/16 04:00 36.6 74 20 133/85 (101) 95 Room Air 12/07/16 00:00 36.6 74 18 129/74 (92) 96 Room Air 12/07/16 00:00 96 Room Air 12/06/16 20:08 36.8 100 18 170/100 (123) 95 Room Air 12/06/16 20:00 95 Room Air 12/06/16 16:00 95 Room Air 12/06/16 16:00 107 16 139/89 (106) 95 Room Air Laboratory Results Last 24 Hours Test 12/06/16 15:29 12/06/16 16:16 12/06/16 20:01 12/06/16 21:06 Bedside Glucose 136 mg/dl 119 mg/dl Hemoglobin 13.1 g/dL Hematocrit 38.2 % Potassium Level 3.8 mmol/L Magnesium Level 1.8 mg/dl Total Creatine Kinase 74 U/L Creatine Kinase MB 2.0 ng/ml Creatine Kinase MB Ratio 2.7 Troponin I < 0.015 ng/ml Test 12/06/16 22:36 12/07/16 03:52 12/07/16 11:46 White Blood Count 8.57 K/uL 6.14 K/uL Red Blood Count 3.97 M/uL 3.78 M/uL Hemoglobin 11.1 g/dL 10.4 g/dL 10.0 g/dL Hematocrit 33.0 % 31.5 % 29.7 % Mean Corpuscular Volume 83.1 fL 83.3 fL Mean Corpuscular Hemoglobin 28.0 pg 27.5 pg Mean Corpuscular Hemoglobin Concent 33.6 g/dl 33.0 g/dl Platelet Count 151 K/uL 142 K/uL Mean Platelet Volume 11.2 fL 11.0 fL Neutrophils (%) (Auto) 61.8 % 52.4 % Lymphocytes (%) (Auto) 30.5 % 37.9 % Monocytes (%) (Auto) 5.8 % 6.4 % Eosinophils (%) (Auto) 1.3 % 2.3 % Basophils (%) (Auto) 0.2 % 0.5 % Neutrophils # (Auto) 5.30 K/uL 3.22 K/uL Lymphocytes # (Auto) 2.61 K/uL 2.33 K/uL Monocytes # (Auto) 0.50 K/uL 0.39 K/uL Eosinophils # (Auto) 0.11 K/uL 0.14 K/uL Basophils # (Auto) 0.02 K/uL 0.03 K/uL RDW Standard Deviation 42.5 fL 42.1 fL RDW Coefficient of Variation 13.9 % 13.9 % Immature Granulocyte % (Auto) 0.4 % 0.5 % Immature Granulocyte # (Auto) 0.03 K/uL 0.03 K/uL Sodium Level 138 mmol/L Potassium Level 3.9 mmol/L Chloride Level 108 mmol/L Carbon Dioxide Level 22 mmol/L Anion Gap 8.0 mmol/L Blood Urea Nitrogen 27 mg/dl Creatinine 1.10 mg/dl Est Creatinine Clear Calc Drug Dose 77.9 ml/min Estimated GFR () 81.2 Estimated GFR (Non- 70.1 BUN/Creatinine Ratio 24.9 Random Glucose 140 mg/dl Calcium Level 7.4 mg/dl Magnesium Level 1.7 mg/dl Total Bilirubin 0.7 mg/dl Aspartate Amino Transf (AST/SGOT) 11 U/L Alanine Aminotransferase (ALT/SGPT) 22 U/L Alkaline Phosphatase 34 U/L Total Creatine Kinase 77 U/L Creatine Kinase MB 2.3 ng/ml Creatine Kinase MB Ratio 3.0 Troponin I < 0.015 ng/ml Total Protein 5.6 gm/dl Albumin 3.0 gm/dl Globulin 2.6 gm/dl Albumin/Globulin Ratio 1.2 Assessment and Plan colonoscopy done. Bleeding at cecal polyp site clipped. Not sure I successfully stopped it. Discussed with patient and after procedure. Clear liquis for now. No abd complaitns.
--- NOTE | 2016-12-07 14:39 | Anesthesiology Progress Note ---
Anesthesia Post Op Note Date & Time Dec 07, 2016 at 14:39 Vital Signs Pain Intensity: 0 Vital Signs Past 12 Hours Date Time Temp Pulse Resp B/P (MAP) Pulse Ox O2 Delivery O2 Flow Rate FiO2 12/07/16 14:30 67 16 148/87 (107) 100 Room Air 12/07/16 14:15 72 16 150/97 (114) 99 Room Air 12/07/16 13:00 81 154/65 12/07/16 12:55 36.5 81 20 149/81 (103) 100 Room Air 12/07/16 04:00 96 Room Air 12/07/16 04:00 36.6 74 20 133/85 (101) 95 Room Air Notes Mental Status: alert / awake / arousable, participated in evaluation Pt Amnestic to Procedure: Yes Nausea / Vomiting: adequately controlled Pain: adequately controlled Airway Patency, RR, SpO2: stable & adequate BP & HR: stable & adequate Hydration State: stable & adequate Anesthetic Complications: no major complications apparent
--- NOTE | 2016-12-07 16:09 | Cardiology Follow-Up ---
Subjective Date of Service: Dec 07, 2016. Pt evaluation today including: conversation w/ patient, physical exam, chart review, lab review, review of studies, review of inpatient medication list History of Present Illness This morning the patient seems to be feeling well. He did not sleep well last night. He is unaware of any palpitations. He has been up out of bed. He has not had any dizziness or lightheadedness. He denies any symptoms of chest discomfort. He did complete his bowel prep last evening and did notice some bloody stools as result.. Social History Smoking Status: Never Smoker History of Alcohol Use: No Objective Vital Signs Past 12 Hours Date Time Temp Pulse Resp B/P (MAP) Pulse Ox O2 Delivery O2 Flow Rate FiO2 12/07/16 14:50 64 18 155/91 (112) 100 Room Air 12/07/16 14:30 67 16 148/87 (107) 100 Room Air 12/07/16 14:15 72 16 150/97 (114) 99 Room Air 12/07/16 13:00 81 154/65 12/07/16 12:55 36.5 81 20 149/81 (103) 100 Room Air Last Recorded Weight-Kilograms: 98.700 Intake & Output 8-Hour Column 12/07/16 12/08/16 12/08/16 16:00 00:00 08:00 Intake Total 2995 ml Balance 2995 ml 24-Hour Column 12/08/16 08:00 Intake Total 2995 ml Balance 2995 ml Physical Exam Lungs: Respiratory effort: no dyspnea Auscultation: breath sounds normal The patient is alert and oriented. Mood and affect appeared normal. He answered all questions appropriately. HEENT: Pupils are equal and reactive to light and accommodation. Extraocular movements are intact. The sclerae are anicteric. Neuro: Cranial nerves intact Extremities: There was no evidence of hypoperfusion. There is no cyanosis or clubbing. There is no edema. Skin: I did not appreciate any rashes on examination today. Data Laboratory Results: Last 24 Hours Test 12/06/16 16:16 12/06/16 20:01 12/06/16 21:06 12/06/16 22:36 Hemoglobin 13.1 g/dL 11.1 g/dL Hematocrit 38.2 % 33.0 % Potassium Level 3.8 mmol/L Magnesium Level 1.8 mg/dl Total Creatine Kinase 74 U/L Creatine Kinase MB 2.0 ng/ml Creatine Kinase MB Ratio 2.7 Troponin I < 0.015 ng/ml Bedside Glucose 119 mg/dl White Blood Count 8.57 K/uL Red Blood Count 3.97 M/uL Mean Corpuscular Volume 83.1 fL Mean Corpuscular Hemoglobin 28.0 pg Mean Corpuscular Hemoglobin Concent 33.6 g/dl Platelet Count 151 K/uL Mean Platelet Volume 11.2 fL Neutrophils (%) (Auto) 61.8 % Lymphocytes (%) (Auto) 30.5 % Monocytes (%) (Auto) 5.8 % Eosinophils (%) (Auto) 1.3 % Basophils (%) (Auto) 0.2 % Neutrophils # (Auto) 5.30 K/uL Lymphocytes # (Auto) 2.61 K/uL Monocytes # (Auto) 0.50 K/uL Eosinophils # (Auto) 0.11 K/uL Basophils # (Auto) 0.02 K/uL RDW Standard Deviation 42.5 fL RDW Coefficient of Variation 13.9 % Immature Granulocyte % (Auto) 0.4 % Immature Granulocyte # (Auto) 0.03 K/uL Test 12/07/16 03:52 12/07/16 11:46 White Blood Count 6.14 K/uL Red Blood Count 3.78 M/uL Hemoglobin 10.4 g/dL 10.0 g/dL Hematocrit 31.5 % 29.7 % Mean Corpuscular Volume 83.3 fL Mean Corpuscular Hemoglobin 27.5 pg Mean Corpuscular Hemoglobin Concent 33.0 g/dl Platelet Count 142 K/uL Mean Platelet Volume 11.0 fL Neutrophils (%) (Auto) 52.4 % Lymphocytes (%) (Auto) 37.9 % Monocytes (%) (Auto) 6.4 % Eosinophils (%) (Auto) 2.3 % Basophils (%) (Auto) 0.5 % Neutrophils # (Auto) 3.22 K/uL Lymphocytes # (Auto) 2.33 K/uL Monocytes # (Auto) 0.39 K/uL Eosinophils # (Auto) 0.14 K/uL Basophils # (Auto) 0.03 K/uL RDW Standard Deviation 42.1 fL RDW Coefficient of Variation 13.9 % Immature Granulocyte % (Auto) 0.5 % Immature Granulocyte # (Auto) 0.03 K/uL Sodium Level 138 mmol/L Potassium Level 3.9 mmol/L Chloride Level 108 mmol/L Carbon Dioxide Level 22 mmol/L Anion Gap 8.0 mmol/L Blood Urea Nitrogen 27 mg/dl Creatinine 1.10 mg/dl Est Creatinine Clear Calc Drug Dose 77.9 ml/min Estimated GFR () 81.2 Estimated GFR (Non- 70.1 BUN/Creatinine Ratio 24.9 Random Glucose 140 mg/dl Calcium Level 7.4 mg/dl Magnesium Level 1.7 mg/dl Total Bilirubin 0.7 mg/dl Aspartate Amino Transf (AST/SGOT) 11 U/L Alanine Aminotransferase (ALT/SGPT) 22 U/L Alkaline Phosphatase 34 U/L Total Creatine Kinase 77 U/L Creatine Kinase MB 2.3 ng/ml Creatine Kinase MB Ratio 3.0 Troponin I < 0.015 ng/ml Total Protein 5.6 gm/dl Albumin 3.0 gm/dl Globulin 2.6 gm/dl Albumin/Globulin Ratio 1.2 Imaging: EKG: Telemetry reviewed: Assessment and Plan 1. Tachycardia: The patient's tachycardia effectively resolved last evening. This was around the time of his metoprolol administration but it is unclear if this had any real effect on his arrhythmia or if the spontaneously improved. He certainly was not symptomatic. One could argue that we need only monitor him for recurrence in an outpatient setting. However, his blood pressure is slightly elevated during his hospitalization and I think he would benefit from some low-dose metoprolol as an outpatient. This may provide some additional antihypertensive affect and attenuate any episodes of the atrial tachycardia. He monitors his heart rate with his wrist monitoring device. He can follow up with me in the clinic in a period of 1 months time to assess any symptoms and review his heart monitor recordings.
--- NOTE | 2016-12-07 16:48 | Progress Note ---
Subjective Date of Service: Dec 07, 2016. Subjective Pt evaluation today including: conversation w/ patient, conversation w/ family , physical exam, chart review, lab review, review of studies, conversation w/ [employer] consultant, review of inpatient medication list Feeling generalized weak, had colonoscopy done, awake and alert and orientated, conversational Problem List Medical Problems: (1) Lower GI bleed Status: Acute (2) Precordial chest pain Status: Acute Review of Systems Constitutional: + weakness, + fatigue, No fever, No chills, No sweats, No problem reported Eyes: No worsening of vision, No eye pain, No redness, No discharge, No diplopia ENT: No hearing loss, No unusual epistaxis, No nasal symptoms, No sore throat, No tinnitus, No dental problems, No trouble swallowing Respiratory: No cough, No sputum, No wheezing, No shortness of breath, No dyspnea on exertion, No dyspnea at rest, No hemoptysis Cardiac: No chest pain, No orthopnea, No PND, No edema, No claudication, No palpitations Abdomen: No pain, No nausea, No vomiting, No diarrhea, No constipation Musculoskeletal: No joint pain, No muscle pain, No swelling, No calf pain Male : No dysuria, No urinary frequency, No incontinence, No nocturia more than once/night, No slowing stream, No hematuria Neurologic: No memory loss, No paralysis, No weakness, No numbness/tingling, No vertigo, No balance problems Psychiatric: No depression symptoms, No anhedonism, No anxiety, No insomnia, No substance abuse Heme: No abnormal bleeding/bruising, No clotting problems, No swollen lymph nodes, No night sweats Endo: No fatigue, No excessive thirst, No excessive urination Skin: No rash, No itch, No new/changing skin lesions, No color change, No bleeding Objective Vital Signs Date Time Temp Pulse Resp B/P (MAP) Pulse Ox O2 Delivery O2 Flow Rate FiO2 12/07/16 14:50 64 18 155/91 (112) 100 Room Air 12/07/16 14:30 67 16 148/87 (107) 100 Room Air 12/07/16 14:15 72 16 150/97 (114) 99 Room Air 12/07/16 13:00 81 154/65 12/07/16 12:55 36.5 81 20 149/81 (103) 100 Room Air 12/07/16 04:00 96 Room Air 12/07/16 04:00 36.6 74 20 133/85 (101) 95 Room Air 12/07/16 00:00 36.6 74 18 129/74 (92) 96 Room Air 12/07/16 00:00 96 Room Air 12/06/16 20:08 36.8 100 18 170/100 (123) 95 Room Air 12/06/16 20:00 95 Room Air Physical Exam General Appearance: WD/WN, no apparent distress, + pertinent finding (tired and pale) Eyes: normal inspection, PERRL, EOMI, sclerae normal ENT: normal ENT inspection, hearing grossly normal, pharynx normal Neck: supple, no adenopathy, thyroid normal, no JVD, no carotid bruits, trachea midline Respiratory/Chest: chest non-tender, normal breath sounds, no respiratory distress, no accessory muscle use, + decreased breath sounds Cardiovascular: regular rate, rhythm, no edema, no gallop, no JVD, no murmur Abdomen: normal bowel sounds, non tender, soft, no organomegaly, no pulsatile mass Extremities: normal range of motion, non-tender, normal inspection, no pedal edema, no calf tenderness, normal capillary refill, pelvis stable 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, no motor/sensory deficits, alert, normal mood/affect, oriented x 3 Skin: normal color, warm/dry, no rash Lymphatic: no adenopathy Laboratory Results Last 24 Hours Test 12/06/16 20:01 12/06/16 21:06 12/06/16 22:36 12/07/16 03:52 Total Creatine Kinase 74 U/L 77 U/L Creatine Kinase MB 2.0 ng/ml 2.3 ng/ml Creatine Kinase MB Ratio 2.7 3.0 Troponin I < 0.015 ng/ml < 0.015 ng/ml Bedside Glucose 119 mg/dl White Blood Count 8.57 K/uL 6.14 K/uL Red Blood Count 3.97 M/uL 3.78 M/uL Hemoglobin 11.1 g/dL 10.4 g/dL Hematocrit 33.0 % 31.5 % Mean Corpuscular Volume 83.1 fL 83.3 fL Mean Corpuscular Hemoglobin 28.0 pg 27.5 pg Mean Corpuscular Hemoglobin Concent 33.6 g/dl 33.0 g/dl Platelet Count 151 K/uL 142 K/uL Mean Platelet Volume 11.2 fL 11.0 fL Neutrophils (%) (Auto) 61.8 % 52.4 % Lymphocytes (%) (Auto) 30.5 % 37.9 % Monocytes (%) (Auto) 5.8 % 6.4 % Eosinophils (%) (Auto) 1.3 % 2.3 % Basophils (%) (Auto) 0.2 % 0.5 % Neutrophils # (Auto) 5.30 K/uL 3.22 K/uL Lymphocytes # (Auto) 2.61 K/uL 2.33 K/uL Monocytes # (Auto) 0.50 K/uL 0.39 K/uL Eosinophils # (Auto) 0.11 K/uL 0.14 K/uL Basophils # (Auto) 0.02 K/uL 0.03 K/uL RDW Standard Deviation 42.5 fL 42.1 fL RDW Coefficient of Variation 13.9 % 13.9 % Immature Granulocyte % (Auto) 0.4 % 0.5 % Immature Granulocyte # (Auto) 0.03 K/uL 0.03 K/uL Sodium Level 138 mmol/L Potassium Level 3.9 mmol/L Chloride Level 108 mmol/L Carbon Dioxide Level 22 mmol/L Anion Gap 8.0 mmol/L Blood Urea Nitrogen 27 mg/dl Creatinine 1.10 mg/dl Est Creatinine Clear Calc Drug Dose 77.9 ml/min Estimated GFR () 81.2 Estimated GFR (Non- 70.1 BUN/Creatinine Ratio 24.9 Random Glucose 140 mg/dl Calcium Level 7.4 mg/dl Magnesium Level 1.7 mg/dl Total Bilirubin 0.7 mg/dl Aspartate Amino Transf (AST/SGOT) 11 U/L Alanine Aminotransferase (ALT/SGPT) 22 U/L Alkaline Phosphatase 34 U/L Total Protein 5.6 gm/dl Albumin 3.0 gm/dl Globulin 2.6 gm/dl Albumin/Globulin Ratio 1.2 Test 12/07/16 08:06 12/07/16 11:01 12/07/16 11:46 Bedside Glucose 141 mg/dl 163 mg/dl Hemoglobin 10.0 g/dL Hematocrit 29.7 % Assessment and Plan 66 year-old admitted on 12/16/2016 because of Lower GI bleed/hematochezia/ beginning 4 days ago, 9 days after colonoscopy with removal of 2 polyps-- Lower GI bleed/hematochezia/beginning with recent colonoscopy with removal of 2 polyps Colonoscopy was done, detail see note report, found the bleeding spot was clipped GI on the case Continue Protonix IV and famotidine IV. Continue telemetry unit for close blood pressure monitoring. 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 Diabetes mellitus, continue Accu-Cheks before meals and at bedtime with NovoLog coverage per scale. Hyperlipidemia: Hold atorvastatin while nothing by mouth. Hypertension, may plan home medication restarted so , Hydralazine 10 mg IV every 6 hours when necessary systolic blood pressure greater than 160. Hyperuricemia, continue Hold uloric Echo was done in this hospitalization was not remarkable SCD for GI prophylaxis Protonix for DVT prophylaxis Discussed with patient and about a care plan Continued [facility] stay due to: multiple IV medications needed Discharge planning: home
[2016-12-07 18:01] LABS: HEMATOCRIT 28.5 % (42-52)
[2016-12-07 23:41] LABS: HEMATOCRIT 26.6 % (42-52)
[2016-12-08] VITALS (7 sets, daily range): BP systolic 132–149; BP diastolic 65–83; PULSE 60–89; TEMP 36.6–36.8; O2SAT 96–100
[2016-12-08] MEDS: FAMOTIDINE IV INJ 20 MG in DEXTROSE 5% 100ML 100 ML IV SCH (02:09)
[2016-12-08 05:34] LABS: BASO % 0.3 %; BASO ABS # 0.02 K/uL (0-0.2); COMPLETE YES; EOS % 1.8 %; HEMATOCRIT 27.5 % (42-52); IG% 0.2 %; LYMPH ABS # 2.26 K/uL (1.2-3.4); MEAN CELL VOLUME 84.6 fL (80-100); MEAN CORPUSCULAR HEMOGLOBIN 28.3 pg (25-34); MEAN CORPUSCULAR HGB CONC 33.5 g/dl (32-36); MEAN PLATELET VOLUME 10.8 fL (7.4-10.4); MONO % 6.7 %; PLATELET COUNT 130 K/uL (130-400); RED BLOOD COUNT 3.25 M/uL (4.7-6.1); WHITE BLOOD COUNT 6.27 K/uL (4.8-10.8)
[2016-12-08 06:22] LABS: BUN/CREATININE RATIO 11.3 (10-20); CALCIUM 7.7 mg/dl (8.5-10.1); CREATININE 1.1 mg/dl (0.60-1.40); MAGNESIUM 2.1 mg/dl (1.8-2.4)
[2016-12-08] MEDS: INSULIN ASPART 100 UNITS/ML 3 ML PEN SC SCH ×4 (06:45→20:20)
--- NOTE | 2016-12-08 10:08 | Progress Note ---
Subjective Date of Service: Dec 08, 2016. Subjective Pt evaluation today including: conversation w/ patient, conversation w/ family , physical exam, chart review, lab review, review of studies, conversation w/ service consultant, review of inpatient medication list Voiding: no voiding problems Still have fresh blood in the bowel movement, denied dizziness palpitation denied chest pain Problem List Medical Problems: (1) Lower GI bleed Status: Acute (2) Precordial chest pain Status: Acute Review of Systems Constitutional: No fever, No chills, No sweats, No weight loss, No weakness, No fatigue, No problem reported Eyes: No worsening of vision, No eye pain, No redness, No discharge, No diplopia ENT: No hearing loss, No unusual epistaxis, No nasal symptoms, No sore throat, No tinnitus, No dental problems, No trouble swallowing Respiratory: No cough, No sputum, No wheezing, No shortness of breath, No dyspnea on exertion, No dyspnea at rest, No hemoptysis Cardiac: No chest pain, No orthopnea, No PND, No edema, No claudication, No palpitations Abdomen: + GI bleeding, No pain, No nausea, No vomiting, No diarrhea, No constipation Musculoskeletal: No joint pain, No muscle pain, No swelling, No calf pain Male : No dysuria, No urinary frequency, No incontinence, No nocturia more than once/night, No slowing stream, No hematuria Neurologic: No memory loss, No paralysis, No weakness, No numbness/tingling, No vertigo, No balance problems Psychiatric: No depression symptoms, No anhedonism, No anxiety, No insomnia, No substance abuse Heme: No abnormal bleeding/bruising, No clotting problems, No swollen lymph nodes, No night sweats Endo: No fatigue, No excessive thirst, No excessive urination Skin: No rash, No itch, No new/changing skin lesions, No color change, No bleeding Objective Vital Signs Date Time Temp Pulse Resp B/P (MAP) Pulse Ox O2 Delivery O2 Flow Rate FiO2 12/08/16 04:00 Room Air 12/08/16 04:00 36.6 60 12 149/79 (102) 100 Room Air 12/07/16 23:59 36.8 64 12 143/88 (106) 100 Room Air 12/07/16 23:59 Room Air 12/07/16 20:00 36.8 75 14 147/88 (107) 99 Room Air 12/07/16 20:00 Room Air 12/07/16 16:00 Room Air 12/07/16 16:00 75 20 149/96 (113) 100 Room Air 12/07/16 16:00 Room Air 12/07/16 14:50 64 18 155/91 (112) 100 Room Air 12/07/16 14:30 67 16 148/87 (107) 100 Room Air 12/07/16 14:15 72 16 150/97 (114) 99 Room Air 12/07/16 13:00 81 154/65 12/07/16 12:55 36.5 81 20 149/81 (103) 100 Room Air 12/07/16 12:00 79 20 94 Room Air 12/07/16 12:00 Room Air 12/07/16 12:00 Room Air Physical Exam General Appearance: WD/WN, no apparent distress, + pertinent finding (mild pale ) Eyes: normal inspection, PERRL, EOMI, sclerae normal ENT: normal ENT inspection, hearing grossly normal, pharynx normal Neck: supple, no adenopathy, thyroid normal, no JVD, no carotid bruits, trachea midline Respiratory/Chest: chest non-tender, lungs clear, normal breath sounds, no respiratory distress, no accessory muscle use Cardiovascular: regular rate, rhythm, no edema, no gallop, no JVD, no murmur Abdomen: normal bowel sounds, non tender, soft, no organomegaly, no pulsatile mass Extremities: normal range of motion, non-tender, normal inspection, no pedal edema, no calf tenderness, normal capillary refill, pelvis stable 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, no motor/sensory deficits, alert, normal mood/affect, oriented x 3 Skin: normal color, warm/dry, no rash Lymphatic: no adenopathy Laboratory Results Last 24 Hours Test 12/07/16 11:01 12/07/16 11:46 12/07/16 16:13 12/07/16 17:38 Bedside Glucose 163 mg/dl 128 mg/dl Hemoglobin 10.0 g/dL 9.3 g/dL Hematocrit 29.7 % 28.5 % Test 12/07/16 22:14 12/07/16 23:34 12/08/16 05:25 Bedside Glucose 105 mg/dl Hemoglobin 9.0 g/dL 9.2 g/dL Hematocrit 26.6 % 27.5 % White Blood Count 6.27 K/uL Red Blood Count 3.25 M/uL Mean Corpuscular Volume 84.6 fL Mean Corpuscular Hemoglobin 28.3 pg Mean Corpuscular Hemoglobin Concent 33.5 g/dl Platelet Count 130 K/uL Mean Platelet Volume 10.8 fL Neutrophils (%) (Auto) 55.0 % Lymphocytes (%) (Auto) 36.0 % Monocytes (%) (Auto) 6.7 % Eosinophils (%) (Auto) 1.8 % Basophils (%) (Auto) 0.3 % Neutrophils # (Auto) 3.45 K/uL Lymphocytes # (Auto) 2.26 K/uL Monocytes # (Auto) 0.42 K/uL Eosinophils # (Auto) 0.11 K/uL Basophils # (Auto) 0.02 K/uL RDW Standard Deviation 42.9 fL RDW Coefficient of Variation 14.0 % Immature Granulocyte % (Auto) 0.2 % Immature Granulocyte # (Auto) 0.01 K/uL Sodium Level 141 mmol/L Potassium Level 4.0 mmol/L Chloride Level 111 mmol/L Carbon Dioxide Level 24 mmol/L Anion Gap 6.0 mmol/L Blood Urea Nitrogen 12 mg/dl Creatinine 1.10 mg/dl Est Creatinine Clear Calc Drug Dose 84.1 ml/min Estimated GFR () 81.2 Estimated GFR (Non- 70.1 BUN/Creatinine Ratio 11.3 Random Glucose 139 mg/dl Calcium Level 7.7 mg/dl Magnesium Level 2.1 mg/dl Assessment and Plan 66 year-old admitted on 12/06/2016 because of Lower GI bleed/hematochezia/ beginning 4 days ago, 9 days after colonoscopy with removal of 2 polyps, Had EGD done in hospitalization on 12/07/2016 Lower GI bleed/hematochezia/beginning with recent colonoscopy with removal of 2 polyps Colonoscopy was done, per report: Diverticulosis in the left colon. - Visible vessel in cecum at site of polypectomy site.. Clips were placed with slowing of bleeding. - A single (solitary) ulcer at 50 cm proximal to the anus. - Blood in the entire examined colon. - The examination was otherwise normal on direct and retroflexion views. - No specimens collected. Relative stable, with the tachycardia, stable lab studies and hemoglobin level is 9.2 compared to last check was 9.0 Continue follow-up GI input Continue Protonix IV and famotidine IV. Continue telemetry unit for close blood pressure monitoring. 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 Diabetes mellitus, continue Accu-Cheks before meals and at bedtime with NovoLog coverage per scale. Hyperlipidemia: Hold atorvastatin while nothing by mouth. Hypertension, may plan home medication restarted so , Hydralazine 10 mg IV every 6 hours when necessary systolic blood pressure greater than 160. Hyperuricemia, continue Hold uloric Echo was done in this hospitalization was not remarkable SCD for GI prophylaxis Protonix for DVT prophylaxis Discussed with patient and about a care plan Continued [facility] stay due to: multiple IV medications needed Discharge planning: home
[2016-12-08] MEDS: METOPROLOL SUCC 25MG EXT REL TAB PO SCH (10:24)
--- NOTE | 2016-12-08 11:21 | Gastroenterology Progress Note ---
Progress Note Date of Service: Dec 08, 2016 Subjective Pt evaluation today including: conversation w/ patient, physical exam, chart review, lab review, review of studies, review of inpatient medication list CC f/u GI bleeding HPI No stools from time of colonoscopy yesterday afternoon until this am 0400 noted small dark red stool and again at 0700. No abd pain. Review of Systems Respiratory: No shortness of breath Cardiac: No chest pain Medications Current Inpatient Medications Medications (Trade) Dose Ordered Sig/Augusto Route Start Time Stop Time Status Last Admin Dose Admin Potassium Chloride/Sodium Chloride 1,000 ml @ 125 mls/hr Q8H IV 12/06/16 13:30 01/05/17 13:29 12/07/16 23:01 125 MLS/HR Ondansetron HCl (Zofran Inj) 4 mg Q6H PRN IV 12/06/16 11:45 01/05/17 11:44 Insulin Aspart (novoLOG ASPART) SLIDING SCALE If C... ACHS SC 12/06/16 16:00 01/05/17 15:59 Glucose (Glucose 40% Gel) UD PRN PO 12/06/16 11:45 01/05/17 11:44 Glucose (Glucose Chew Tab) 1 tabs UD PRN PO 12/06/16 11:45 01/05/17 11:44 Dextrose (Dextrose 50% 50ML Syringe) 50 ml UD PRN IV 12/06/16 11:45 01/05/17 11:44 Glucagon (Glucagon Inj) 1 mg UD PRN SQ 12/06/16 11:45 01/05/17 11:44 Acetaminophen 100 ml @ 400 mls/hr Q8H PRN IV 12/06/16 11:45 01/05/17 11:44 Pantoprazole Sodium 40 mg/ Syringe 10 ml @ 5 mls/min DAILY@11 IV 12/07/16 11:00 01/06/17 10:59 12/07/16 15:16 5 MLS/MIN Famotidine 20 mg/ Dextrose 102 ml @ 200 mls/hr Q12H IV 12/06/16 14:00 01/05/17 13:59 12/08/16 02:09 200 MLS/HR Metoprolol Tartrate (Lopressor Iv) 5 mg Q4 PRN IV 12/06/16 12:00 01/05/17 11:59 Hydralazine HCl (HydrALAZINE INJ) 10 mg Q4H PRN IV. 12/06/16 12:00 01/05/17 11:59 12/06/16 15:34 10 MG Metoprolol Succinate (Toprol Xl Tab) 25 mg QAM PO 12/08/16 09:00 01/07/17 08:59 12/08/16 10:24 25 MG Objective Vital Signs Date Time Temp Pulse Resp B/P (MAP) Pulse Ox O2 Delivery O2 Flow Rate FiO2 12/08/16 04:00 Room Air 12/08/16 04:00 36.6 60 12 149/79 (102) 100 Room Air 12/07/16 23:59 36.8 64 12 143/88 (106) 100 Room Air 12/07/16 23:59 Room Air 12/07/16 20:00 36.8 75 14 147/88 (107) 99 Room Air 12/07/16 20:00 Room Air 12/07/16 16:00 Room Air 12/07/16 16:00 75 20 149/96 (113) 100 Room Air 12/07/16 16:00 Room Air 12/07/16 14:50 64 18 155/91 (112) 100 Room Air 12/07/16 14:30 67 16 148/87 (107) 100 Room Air 12/07/16 14:15 72 16 150/97 (114) 99 Room Air 12/07/16 13:00 81 154/65 12/07/16 12:55 36.5 81 20 149/81 (103) 100 Room Air 12/07/16 12:00 79 20 94 Room Air 12/07/16 12:00 Room Air 12/07/16 12:00 Room Air Physical Exam General Appearance: WD/WN, no apparent distress Respiratory/Chest: lungs clear, no respiratory distress Cardiovascular: regular rate, rhythm, no edema Abdomen: normal bowel sounds, non tender, soft, no organomegaly, no pulsatile mass Neurologic/Psych: normal mood/affect, oriented x 3 Laboratory Results Last 24 Hours Test 12/07/16 11:46 12/07/16 16:13 12/07/16 17:38 12/07/16 22:14 Hemoglobin 10.0 g/dL 9.3 g/dL Hematocrit 29.7 % 28.5 % Bedside Glucose 128 mg/dl 105 mg/dl Test 12/07/16 23:34 12/08/16 05:25 Hemoglobin 9.0 g/dL 9.2 g/dL Hematocrit 26.6 % 27.5 % White Blood Count 6.27 K/uL Red Blood Count 3.25 M/uL Mean Corpuscular Volume 84.6 fL Mean Corpuscular Hemoglobin 28.3 pg Mean Corpuscular Hemoglobin Concent 33.5 g/dl Platelet Count 130 K/uL Mean Platelet Volume 10.8 fL Neutrophils (%) (Auto) 55.0 % Lymphocytes (%) (Auto) 36.0 % Monocytes (%) (Auto) 6.7 % Eosinophils (%) (Auto) 1.8 % Basophils (%) (Auto) 0.3 % Neutrophils # (Auto) 3.45 K/uL Lymphocytes # (Auto) 2.26 K/uL Monocytes # (Auto) 0.42 K/uL Eosinophils # (Auto) 0.11 K/uL Basophils # (Auto) 0.02 K/uL RDW Standard Deviation 42.9 fL RDW Coefficient of Variation 14.0 % Immature Granulocyte % (Auto) 0.2 % Immature Granulocyte # (Auto) 0.01 K/uL Sodium Level 141 mmol/L Potassium Level 4.0 mmol/L Chloride Level 111 mmol/L Carbon Dioxide Level 24 mmol/L Anion Gap 6.0 mmol/L Blood Urea Nitrogen 12 mg/dl Creatinine 1.10 mg/dl Est Creatinine Clear Calc Drug Dose 84.1 ml/min Estimated GFR () 81.2 Estimated GFR (Non- 70.1 BUN/Creatinine Ratio 11.3 Random Glucose 139 mg/dl Calcium Level 7.7 mg/dl Magnesium Level 2.1 mg/dl Assessment and Plan GI bleeding--post polypectomy bleed from cecal polyp--s/p [place] with clipping 12/14. H and H stable since 1700 yesterday and stool dark red this am. Hopefully has stopped and BM this am just old blood in colon. Advance to full liquids. DC Pepcid and protonix as this is not UGI bleeding. Would keep at least until tomorrow to monitor of further bleeding. Cut IVF rate back to 50 ml/ hour. acute blood loss anemia--follow H and H and transfuse prn. Diverticulosis--not involved in the current bleeding. colon polyps s/p resection--tubular adenoma--benign
[2016-12-08] MEDS: NSS + 20MEQ KCL 1000ML 1,000 ML IV SCH (15:50)
[2016-12-08 16:08] LABS: HEMATOCRIT 25.4 % (42-52)
[2016-12-09] VITALS (7 sets, daily range): BP systolic 138–155; BP diastolic 78–90; PULSE 54–68; TEMP 36.5–36.9; O2SAT 96–100
[2016-12-09 05:43] LABS: BASO % 0.9 %; BASO ABS # 0.04 K/uL (0-0.2); COMPLETE YES; EOS % 2.6 %; IG% 0.4 %; LYMPH % 42.6 %; LYMPH ABS # 1.97 K/uL (1.2-3.4); MEAN CELL VOLUME 84.4 fL (80-100); MEAN CORPUSCULAR HEMOGLOBIN 28.4 pg (25-34); MEAN CORPUSCULAR HGB CONC 33.7 g/dl (32-36); MONO % 6.3 %; NEUT % 47.2 %; PLATELET COUNT 126 K/uL (130-400); WHITE BLOOD COUNT 4.62 K/uL (4.8-10.8)
[2016-12-09 06:02] LABS: BUN/CREATININE RATIO 8.4 (10-20); CALCIUM 7.9 mg/dl (8.5-10.1); CREATININE 1.1 mg/dl (0.60-1.40); POTASSIUM 3.9 mmol/L (3.5-5.1)
[2016-12-09 06:12] LABS: THYROID STIMULATING HORMONE 2.79 uIu/ml (0.300-4.500)
[2016-12-09] MEDS: INSULIN ASPART 100 UNITS/ML 3 ML PEN SC SCH ×4 (07:00→20:52)
[2016-12-09] MEDS: METOPROLOL SUCC 25MG EXT REL TAB PO SCH (07:51)
--- NOTE | 2016-12-09 11:27 | Progress Note ---
Subjective Date of Service: Dec 09, 2016. Subjective Pt evaluation today including: conversation w/ patient, physical exam, chart review, lab review, review of studies, conversation w/ cleaning validation consultant, review of inpatient medication list Doing okay, tolerate full liquid diet, has been up and walk no dizziness, no bowel movement, Problem List Medical Problems: (1) Lower GI bleed Status: Acute (2) Precordial chest pain Status: Acute Review of Systems Constitutional: + weakness, + fatigue, No fever, No chills, No sweats, No weight loss, No problem reported Eyes: No worsening of vision, No eye pain, No redness, No discharge, No diplopia ENT: No hearing loss, No unusual epistaxis, No nasal symptoms, No sore throat, No tinnitus, No dental problems, No trouble swallowing Respiratory: No cough, No sputum, No wheezing, No shortness of breath, No dyspnea on exertion, No dyspnea at rest, No hemoptysis Cardiac: No chest pain, No orthopnea, No PND, No edema, No claudication, No palpitations Abdomen: No pain, No nausea, No vomiting, No diarrhea, No constipation Musculoskeletal: No joint pain, No muscle pain, No swelling, No calf pain Male : No dysuria, No urinary frequency, No incontinence, No nocturia more than once/night, No slowing stream, No hematuria Neurologic: No memory loss, No paralysis, No weakness, No numbness/tingling, No vertigo, No balance problems Psychiatric: No depression symptoms, No anhedonism, No anxiety, No insomnia, No substance abuse Heme: No abnormal bleeding/bruising, No clotting problems, No swollen lymph nodes, No night sweats Endo: No fatigue, No excessive thirst, No excessive urination Skin: No rash, No itch, No new/changing skin lesions, No color change, No bleeding Objective Vital Signs Date Time Temp Pulse Resp B/P (MAP) Pulse Ox O2 Delivery O2 Flow Rate FiO2 12/09/16 10:42 36.6 57 18 144/78 (100) 100 Room Air 12/09/16 08:00 Room Air 12/09/16 07:35 36.5 65 18 138/84 (102) 100 Room Air 12/09/16 04:00 100 Room Air 12/09/16 03:33 36.7 54 16 150/79 (102) 100 Room Air 12/08/16 23:59 100 Room Air 12/08/16 23:33 36.7 67 18 132/74 (93) 100 Room Air 12/08/16 20:00 96 Room Air 12/08/16 19:19 36.8 89 18 134/65 (88) 96 12/08/16 16:00 36.6 64 18 135/83 (100) 100 Room Air 12/08/16 16:00 Room Air 12/08/16 12:00 Room Air 12/08/16 12:00 36.8 66 18 137/70 (92) 97 Room Air Physical Exam General Appearance: WD/WN, no apparent distress Eyes: normal inspection, PERRL, EOMI, sclerae normal ENT: normal ENT inspection, hearing grossly normal, pharynx normal Neck: supple, no adenopathy, thyroid normal, no JVD, no carotid bruits, trachea midline Respiratory/Chest: chest non-tender, lungs clear, normal breath sounds, no respiratory distress, no accessory muscle use Cardiovascular: regular rate, rhythm, no edema, no gallop, no JVD, no murmur Abdomen: normal bowel sounds, non tender, soft, no organomegaly, no pulsatile mass Extremities: normal range of motion, non-tender, normal inspection, no pedal edema, no calf tenderness, normal capillary refill, pelvis stable Neurologic/Psychiatric: search engine marketing manager II-XII nml as tested, no motor/sensory deficits, alert, normal mood/affect, oriented x 3 Skin: normal color, warm/dry, no rash Lymphatic: no adenopathy Laboratory Results Last 24 Hours Test 12/08/16 12:32 12/08/16 15:59 12/08/16 16:08 12/08/16 20:11 Bedside Glucose 173 mg/dl 112 mg/dl 99 mg/dl Hemoglobin 8.7 g/dL Hematocrit 25.4 % Test 12/09/16 05:13 12/09/16 06:33 White Blood Count 4.62 K/uL Red Blood Count 3.20 M/uL Hemoglobin 9.1 g/dL Hematocrit 27.0 % Mean Corpuscular Volume 84.4 fL Mean Corpuscular Hemoglobin 28.4 pg Mean Corpuscular Hemoglobin Concent 33.7 g/dl Platelet Count 126 K/uL Mean Platelet Volume 11.0 fL Neutrophils (%) (Auto) 47.2 % Lymphocytes (%) (Auto) 42.6 % Monocytes (%) (Auto) 6.3 % Eosinophils (%) (Auto) 2.6 % Basophils (%) (Auto) 0.9 % Neutrophils # (Auto) 2.18 K/uL Lymphocytes # (Auto) 1.97 K/uL Monocytes # (Auto) 0.29 K/uL Eosinophils # (Auto) 0.12 K/uL Basophils # (Auto) 0.04 K/uL RDW Standard Deviation 43.2 fL RDW Coefficient of Variation 14.1 % Immature Granulocyte % (Auto) 0.4 % Immature Granulocyte # (Auto) 0.02 K/uL Sodium Level 142 mmol/L Potassium Level 3.9 mmol/L Chloride Level 111 mmol/L Carbon Dioxide Level 24 mmol/L Anion Gap 7.0 mmol/L Blood Urea Nitrogen 9 mg/dl Creatinine 1.10 mg/dl Est Creatinine Clear Calc Drug Dose 77.9 ml/min Estimated GFR () 81.2 Estimated GFR (Non- 70.1 BUN/Creatinine Ratio 8.4 Random Glucose 131 mg/dl Calcium Level 7.9 mg/dl Magnesium Level 2.0 mg/dl Thyroid Stimulating Hormone (TSH) 2.790 uIu/ml Bedside Glucose 129 mg/dl Assessment and Plan 66 year-old admitted on 12/06/2016 because of Lower GI bleed/hematochezia/ beginning prior to the admission, 9 days after colonoscopy with removal of 2 polyps, Had and colonoscopy done in hospitalization on 12/07/2016 Lower GI bleed/hematochezia/beginning with recent colonoscopy with removal of 2 polyps Colonoscopy was done, per report: Diverticulosis in the left colon. - Visible vessel in cecum at site of polypectomy site.. Clips were placed with slowing of bleeding. - A single (solitary) ulcer at 50 cm proximal to the anus. - Blood in the entire examined colon. - The examination was otherwise normal on direct and retroflexion views. - No specimens collected. Continue relative stable, was tachycardia, stable lab studies and hemoglobin level is 9.1 compared to last check was 8.7 Continue follow-up GI input Continue telemetry unit for close blood pressure monitoring. Advance diet per GI recommendation, will transfuse if hemoglobin level less than 8 and will notify GI episodes of the atrial tachycardia, resolved, may need to follow up with change number operator if needed as outpatient TSH, echo was done, per change number operator patient may benefit from some low-dose metoprolol as an outpatient. Today's SBP 148, heart rate 57, will not initiated beta milad for now Diabetes mellitus, continue Accu-Cheks before meals and at bedtime with NovoLog coverage per scale. Hyperlipidemia: Hypertension, Hyperuricemia, The above condition stable will resume home medication Echo was done in this hospitalization was not remarkable SCD for GI prophylaxis We'll discuss with GI, possible discharge home tomorrow morning if hemoglobin continue stable Continued [facility] stay due to: home environment unsafe for pt Discharge planning: home
--- NOTE | 2016-12-09 14:21 | Gastroenterology Progress Note ---
Progress Note Date of Service: Dec 09, 2016 Subjective Pt evaluation today including: conversation w/ patient, physical exam, chart review, lab review, review of studies, review of inpatient medication list CC f/u GI bleeding HPI Pt has no further stools since saw him yesterday. Tolerating full liquid diet. Review of Systems Respiratory: + shortness of breath Cardiac: + chest pain Medications Current Inpatient Medications Medications (Trade) Dose Ordered Sig/Augusto Route Start Time Stop Time Status Last Admin Dose Admin Ondansetron HCl (Zofran Inj) 4 mg Q6H PRN IV 12/06/16 11:45 01/05/17 11:44 Insulin Aspart (novoLOG ASPART) SLIDING SCALE If C... ACHS SC 12/06/16 16:00 01/05/17 15:59 Glucose (Glucose 40% Gel) UD PRN PO 12/06/16 11:45 01/05/17 11:44 Glucose (Glucose Chew Tab) 1 tabs UD PRN PO 12/06/16 11:45 01/05/17 11:44 Dextrose (Dextrose 50% 50ML Syringe) 50 ml UD PRN IV 12/06/16 11:45 01/05/17 11:44 Glucagon (Glucagon Inj) 1 mg UD PRN SQ 12/06/16 11:45 01/05/17 11:44 Acetaminophen 100 ml @ 400 mls/hr Q8H PRN IV 12/06/16 11:45 01/05/17 11:44 Metoprolol Tartrate (Lopressor Iv) 5 mg Q4 PRN IV 12/06/16 12:00 01/05/17 11:59 Hydralazine HCl (HydrALAZINE INJ) 10 mg Q4H PRN IV. 12/06/16 12:00 01/05/17 11:59 12/06/16 15:34 10 MG Metoprolol Succinate (Toprol Xl Tab) 25 mg QAM PO 12/08/16 09:00 01/07/17 08:59 12/09/16 07:51 25 MG Atorvastatin Calcium (Lipitor Tab) 10 mg DAILY PO 12/10/16 09:00 01/09/17 08:59 Cholecalciferol (Vitamin D Tab) 400 inter.unit DAILY PO 12/10/16 09:00 01/09/17 08:59 Glimepiride (Amaryl Tab) 2 mg DAILY PO 12/10/16 09:00 01/09/17 08:59 Vitamin B Complex (Vitamin B Complex) 1 tab DAILY PO 12/10/16 09:00 01/09/17 08:59 Febuxostat (Uloric) 40 mg DAILY PO 12/10/16 09:00 01/09/17 08:59 Objective Vital Signs Date Time Temp Pulse Resp B/P (MAP) Pulse Ox O2 Delivery O2 Flow Rate FiO2 12/09/16 13:42 36.5 60 18 155/90 (111) 97 Room Air 12/09/16 13:25 36.6 57 18 100 12/09/16 12:00 Room Air 12/09/16 10:42 36.6 57 18 144/78 (100) 100 Room Air 12/09/16 08:00 Room Air 12/09/16 07:35 36.5 65 18 138/84 (102) 100 Room Air 12/09/16 04:00 100 Room Air 12/09/16 03:33 36.7 54 16 150/79 (102) 100 Room Air 12/08/16 23:59 100 Room Air 12/08/16 23:33 36.7 67 18 132/74 (93) 100 Room Air 12/08/16 20:00 96 Room Air 12/08/16 19:19 36.8 89 18 134/65 (88) 96 12/08/16 16:00 36.6 64 18 135/83 (100) 100 Room Air 12/08/16 16:00 Room Air Physical Exam General Appearance: WD/WN, no apparent distress Respiratory/Chest: lungs clear, no respiratory distress Cardiovascular: regular rate, rhythm Abdomen: normal bowel sounds, non tender, soft, no organomegaly Neurologic/Psych: normal mood/affect, oriented x 3 Laboratory Results Last 24 Hours Test 12/08/16 15:59 12/08/16 16:08 12/08/16 20:11 12/09/16 05:13 Hemoglobin 8.7 g/dL 9.1 g/dL Hematocrit 25.4 % 27.0 % Bedside Glucose 112 mg/dl 99 mg/dl White Blood Count 4.62 K/uL Red Blood Count 3.20 M/uL Mean Corpuscular Volume 84.4 fL Mean Corpuscular Hemoglobin 28.4 pg Mean Corpuscular Hemoglobin Concent 33.7 g/dl Platelet Count 126 K/uL Mean Platelet Volume 11.0 fL Neutrophils (%) (Auto) 47.2 % Lymphocytes (%) (Auto) 42.6 % Monocytes (%) (Auto) 6.3 % Eosinophils (%) (Auto) 2.6 % Basophils (%) (Auto) 0.9 % Neutrophils # (Auto) 2.18 K/uL Lymphocytes # (Auto) 1.97 K/uL Monocytes # (Auto) 0.29 K/uL Eosinophils # (Auto) 0.12 K/uL Basophils # (Auto) 0.04 K/uL RDW Standard Deviation 43.2 fL RDW Coefficient of Variation 14.1 % Immature Granulocyte % (Auto) 0.4 % Immature Granulocyte # (Auto) 0.02 K/uL Sodium Level 142 mmol/L Potassium Level 3.9 mmol/L Chloride Level 111 mmol/L Carbon Dioxide Level 24 mmol/L Anion Gap 7.0 mmol/L Blood Urea Nitrogen 9 mg/dl Creatinine 1.10 mg/dl Est Creatinine Clear Calc Drug Dose 77.9 ml/min Estimated GFR () 81.2 Estimated GFR (Non- 70.1 BUN/Creatinine Ratio 8.4 Random Glucose 131 mg/dl Calcium Level 7.9 mg/dl Magnesium Level 2.0 mg/dl Thyroid Stimulating Hormone (TSH) 2.790 uIu/ml Test 12/09/16 06:33 12/09/16 11:29 Bedside Glucose 129 mg/dl 125 mg/dl Assessment and Plan GI bleeding--post polypectomy bleed from cecal polyp--s/p [place] with clipping 12/14. No further bleeding. Advance to solid diet and should be able to go home tomorrow. acute blood loss anemia--stable. Diverticulosis--not involved in the current bleeding. colon polyps s/p resection--tubular adenoma--benign
[2016-12-10 00:05] VITALS: BP 134/73; PULSE 61; TEMP 36.6; O2SAT 99
[2016-12-10 07:43] VITALS: BP 151/80; PULSE 59; TEMP 36.6; O2SAT 99
[2016-12-10 08:00] VITALS: O2SAT 99
[2016-12-10] MEDS: METOPROLOL SUCC 25MG EXT REL TAB PO SCH (08:40)
[2016-12-10] MEDS: INSULIN ASPART 100 UNITS/ML 3 ML PEN SC SCH (08:44)
--- NOTE | 2016-12-10 08:49 | Discharge Instructions ---
Discharge Instructions Date of Service Dec 10, 2016. Admission Reason for Admission: Lower Gi Bleed Discharge Discharge Diagnosis / Problem: GI bleeding--post polypectomy bleed from cecal polyp--s/p [place] with clippin Discharge Goals Goal(s): Decrease discomfort, Improve function, Increase independence, Improve disease control, Improve nutritional status, Learn about illness, Diagnostic testing, Therapeutic intervention, Prevent Disease Progression, Specific goals Activity Recommendations Activity Limitations: resume your previous activity . Instructions / Follow-Up Instructions / Follow-Up you have GI bleeding--post polypectomy bleed from cecal polys s/p [place] with clipping 12/07/16 you have acute blood loss anemia you need to follow up with Wire Communications Engineer as instructed - you need to follow up with your primary care physician in 1 week, - take medication as instructed, never overdose or any misuse, or take with alcohol, because misuse of medicine may cause organ damage or , call your primary care physician if have questions of medicaitons. - call your primary care physician OR go to local emergency room if has any fever/chill, chest pain, shortness of breathing, nausea/vomiting/abdominal pain , facial droop/slurry speech/local weakness, or if has any questions. - fall precaution - diet as instructed - you need to follow up with your subspecialist - you should understand that it is important to follow up the above instruction , and "not following the above instruction" may cause delayed or missed care of your medical conditions which may cause permanent organ damage and even . Current Hospital Diet Patient's current hospital diet: Diabetes Type 2 Diet Discharge Diet Recommended Diet: Diabetes Type 2 Diet Procedures Procedures Performed: Colonoscopy with hemoclip placement Pending Studies Studies pending at discharge: no Laboratory Results Hemoglobin A1c Test 11/02/16 09:24 Range/Units Estimated Average Glucose 148 mg/dl Hemoglobin A1c 6.8 H 4.5-5.6 % Lipid Panel Test 11/02/16 09:23 Range/Units Triglycerides Level 276 H 0-150 mg/dl Cholesterol Level 119 0-200 mg/dl HDL Cholesterol 45 mg/dl Cholesterol/HDL Ratio 2.6 LDL Cholesterol, Calculated 19 mg/dl Medical Emergencies . Who to Call and When: Medical Emergencies: If at any time you feel your situation is an emergency, please call 911 immediately. . Non-Emergent Contact Non-Emergency issues call your: Primary Care Provider Call Non-Emergent contact if: you have a fever (or rectal bleeding) . . "Provider Documentation" section prepared by Avila Billy. . VTE Core Measure Inpt VTE Proph given/why not?: SCD's
[2016-12-10] MEDS ORDERED: GLIMEPIRIDE 2 MG TAB PO SCH (09:00)
[2016-12-10] MEDS ORDERED: FEBUXOSTAT 40 MG TAB PO SCH (09:00)
[2016-12-10] MEDS ORDERED: CHOLECALCIFEROL 400 INTER.UNIT TAB PO SCH (09:00)
[2016-12-10] MEDS ORDERED: VITAMIN B COMPLEX TAB PO SCH (09:00)
[2016-12-10] MEDS ORDERED: ATORVASTATIN 10 MG TAB PO SCH (09:00)
[2016-12-10 09:22] VITALS: BP 151/80; PULSE 59; TEMP 36.6; O2SAT 99
--- NOTE | 2016-12-10 16:50 | Discharge Summary ---
Discharge Summary Date of Service Dec 10, 2016. Discharge Summary Admission Date: Dec 06, 2016 at 11:35 Discharge Date: Dec 10, 2016 Principal Diagnosis: GI bleeding--post polypectomy bleed from cecal polys Problems/Secondary Diagnoses: s/p Schulter with clipping 12/07/16 acute blood loss anemia Immunizations: Have You Had Influenza Vaccine: Yes Influenza Vaccine Date: Dec 02, 2010 History of Tetanus Vaccine?: UNCERTAIN OF DATE History of Pneumococcal: No History of Hepatitis B Vaccine: HAD APPROX 10 YEARS AGO Procedures: GI bleeding--post polypectomy bleed from cecal polys s/p Schulter with clipping 12/07/16 Consultations: GI Medication Reconciliation Continued Medications: Atorvastatin (Lipitor) 10 Mg Tab 10 MG PO DAILY B-Complex Vitamins (Vitamin B Complex) 1 Tab Tab 1 TAB PO DAILY Cholecalciferol (Vitamin D) 400 Unit Tab 400 UNITS PO DAILY Febuxostat (Uloric) 40 Mg Tab 40 MG PO DAILY Glimepiride (Amaryl) 1 Mg Tab 2 MG PO DAILY TWO 1 MG TABLETS, PER PT Hctz/Lisinopril (Zestoretic 20MG/25MG) 1 Ea Tab 1 TAB PO DAILY Metformin Hcl Er (Glucophage Er) 500 Mg Tab 500 MG PO TIDM Discharge Exam Doing well, up and walk, tolerated diet Review of Systems: Constitutional: No fever, No chills, No sweats, No weight loss, No weakness , No fatigue, No problem reported Eyes: No worsening of vision, No eye pain, No redness, No discharge, No diplopia, No problem reported ENT: No hearing loss, No unusual epistaxis, No nasal symptoms, No sore throat, No tinnitus, No dental problems, No trouble swallowing, No problem reported Respiratory: No cough, No sputum, No wheezing, No shortness of breath, No dyspnea on exertion, No dyspnea at rest, No hemoptysis, No problem reported Cardiovascular: No chest pain, No orthopnea, No PND, No edema, No claudication, No palpitations, No problem reported Abdomen: No pain, No nausea, No vomiting, No diarrhea, No constipation, No GI bleeding, No problem reported Musculoskeletal: No joint pain, No muscle pain, No swelling, No calf pain, No problem reported Genitourinary - Male: No hematuria, No dysuria, No urinary frequency, No urinary urgency, No urinary hesitancy, No urinary retention, No urinary incontinence, No penile discharge, No lesions, No impotence, No problem reported Neurologic: No memory loss, No paralysis, No weakness, No numbness/tingling , No vertigo, No balance problems, No problem reported Psychiatric: No depression symptoms, No anhedonism, No anxiety, No insomnia , No substance abuse, No problem reported Endocrine: No fatigue, No excessive thirst, No excessive urination, No problem reported Hematologic / Lymphatic: No abnormal bleeding/bruising, No clotting problems , No swollen lymph nodes, No night sweats, No problem reported Integumentary: No rash, No itch, No new/changing skin lesions, No color change, No bleeding, No problem reported Hospital Course 66 year-old admitted on 12/06/2016 because of Lower GI bleed/hematochezia/ beginning prior to the admission, 9 days after colonoscopy with removal of 2 polyps, Had and colonoscopy done in hospitalization on 12/07/2016 Lower GI bleed/hematochezia/beginning with recent colonoscopy with removal of 2 polyps Colonoscopy was done, per report: Diverticulosis in the left colon. - Visible vessel in cecum at site of polypectomy site.. Clips were placed with slowing of bleeding. - A single (solitary) ulcer at 50 cm proximal to the anus. - Blood in the entire examined colon. - The examination was otherwise normal on direct and retroflexion views. - No specimens collected. Speaking Continue stable, was tachycardia, stable lab studies and hemoglobin level is 9.7 compared to last check was 9.1 Advance diet per GI recommendation, patient has been no dizziness no bloody stools, tolerate diet, hemodynamically stable for 2 days therefore I believe he should be okay to call episodes of the atrial tachycardia, resolved, may need to follow up with electrical prospecting operator if needed as outpatient TSH, echo was done, per electrical prospecting operator patient may benefit from some low-dose metoprolol as an outpatient. However today's blood pressure is mild elevation, therefore patient should be okay to continue home dose of blood pressure medicine Diabetes mellitus, continue Accu-Cheks before meals and at bedtime with NovoLog coverage per scale. Hyperlipidemia: Hypertension, Hyperuricemia, The above condition stable will resume home medication Echo was done in this hospitalization was not remarkable SCD for GI prophylaxis Instructions / Follow-Up you have GI bleeding--post polypectomy bleed from cecal polys s/p Schulter with clipping 12/07/16 you have acute blood loss anemia you need to follow up with Wastewater Operator as instructed - you need to follow up with your primary care physician in 1 week, - take medication as instructed, never overdose or any misuse, or take with alcohol, because misuse of medicine may cause organ damage or , call your primary care physician if have questions of medicaitons. - call your primary care physician OR go to local emergency room if has any fever/chill, chest pain, shortness of breathing, nausea/vomiting/abdominal pain , facial droop/slurry speech/local weakness, or if has any questions. - fall precaution - diet as instructed - you need to follow up with your subspecialist - you should understand that it is important to follow up the above instruction , and "not following the above instruction" may cause delayed or missed care of your medical conditions which may cause permanent organ damage and even . Total Time Spent: Less than 30 minutes This includes examination of the patient, discharge planning, medication reconciliation, and communication with other providers. Discharge Instructions Please refer to the electronic Patient Visit Report (Discharge Instructions) for additional information. Additional Copies To Mervin Lai M.D.; Eric Melgoza M.D.
== END 2016-12-10 11:05 | disposition home or self-care (01) | DRG 920 ==
LOC: C.EDB 08:45 → C.MSICU 11:35 → ENRESERV 12:19 → C.2T 12-08 18:26 → ENRESERV 12-09 12:09 → C.MS2W 12-09 13:38
PROVIDERS: ADMIT Hospitalist; ATTEND Hospitalist
PROC: 0W3P8ZZ Control Bleeding in Gastrointestinal Tract, Via Natural or Artificial Opening Endoscopic (ICD-10-PCS; principal; 2016-12-07 13:00)
DX: K91.840 Postprocedural hemorrhage of a digestive system organ or structure following a digestive system procedure (principal); D62 Acute posthemorrhagic anemia; K57.30 Diverticulosis of large intestine without perforation or abscess without bleeding; R00.0 Tachycardia, unspecified; E11.9 Type 2 diabetes mellitus without complications; I10 Essential (primary) hypertension; E78.5 Hyperlipidemia, unspecified; E79.0 Hyperuricemia without signs of inflammatory arthritis and tophaceous disease; Z79.84 Long term (current) use of oral hypoglycemic drugs; Z79.899 Other long term (current) drug therapy

== ENCOUNTER → 2017-02-10 | Outpatient (CLI) | payer BC ==
[~2017-02-10] MED LIST changes: -ACET-1256 PO; -AMR2 PO; +ATOR10TA82 PO; -ATOR10TA88 PO; +B-COTAB18 PO; +CHOL400T PO; -GLCSR500 PO; +GLIM1TAB PO; -LISI20TA55 PO; +LSN/2025 PO; +METF500T5 PO; -PRT40 PO; -SITA1TAB27 PO
[2017-02-10 14:38] LABS: BASO % 0.6 %; BASO ABS # 0.03 K/uL (0-0.2); COMPLETE YES; EOS % 1.7 %; HEMATOCRIT 42.2 % (42-52); LYMPH % 36.8 %; LYMPH ABS # 1.98 K/uL (1.2-3.4); MEAN CELL VOLUME 75.2 fL (80-100); MEAN CORPUSCULAR HEMOGLOBIN 24.2 pg (25-34); MEAN CORPUSCULAR HGB CONC 32.2 g/dl (32-36); MONO % 8.6 %; NEUT % 52.3 %; PLATELET COUNT 200 K/uL (130-400); RED BLOOD COUNT 5.61 M/uL (4.7-6.1); WHITE BLOOD COUNT 5.38 K/uL (4.8-10.8)
[2017-02-10 14:51] LABS: ALT/SGPT 30 U/L (12-78); AST/SGOT 22 U/L (15-37); BLOOD UREA NITROGEN 33 mg/dl (7-18); BUN/CREATININE RATIO 22.4 (10-20); CALCIUM 9.3 mg/dl (8.5-10.1); CARBON DIOXIDE 22 mmol/L (21-32); CHLORIDE 103 mmol/L (98-107); CREATININE 1.49 mg/dl (0.60-1.40); GLUCOSE 138 mg/dl (70-99); POTASSIUM 3.9 mmol/L (3.5-5.1); SODIUM 134 mmol/L (136-145); URIC ACID 4.9 mg/dl (2.6-7.2)
[2017-02-10 14:57] LABS: ALB/GLOB RATIO 1.1 (0.9-2); ALKALINE PHOSPHATASE 52 U/L (45-117); CHOLESTEROL 119 mg/dl (0-200); CHOLESTEROL/HDL RATIO 2.4; HDL CHOLESTEROL 49 mg/dl; LDL CHOLESTEROL CALCULATED 22 mg/dl; TRIGLYCERIDES 238 mg/dl (0-150); VERY LOW DENSITY LIPOPROT CALC 48 mg/dl
[2017-02-10 15:01] LABS: RATIO 72.7 mcg/mg (0-30.0)
[2017-02-11 06:10] LABS: ESTIMATED AVERAGE GLUCOSE 140 mg/dl; HA1C FLAG Normal (Normal)
== END | disposition home or self-care (01) ==
LOC: C.LABBC 10:59
PROVIDERS: ATTEND Internal Medicine Pulmonary Disease
DX: Z00.00 Encounter for general adult medical examination without abnormal findings (principal); M10.9 Gout, unspecified

== ENCOUNTER → 2017-07-11 | Outpatient (CLI) | payer BC ==
[2017-07-11 13:05] LABS: MEAN CORPUSCULAR HGB CONC 32.7 g/dl (32-36)
[2017-07-11 13:13] LABS: HEMOGLOBIN A1C 6.8 % (4.5-5.6)
[2017-07-11 13:15] LABS: HEMATOCRIT 46.8 % (42-52); HEMOGLOBIN 15.3 g/dL (14.0-18.0); MEAN CELL VOLUME 73.7 fL (80-100); MEAN CORPUSCULAR HEMOGLOBIN 24.1 pg (25-34); RED CELL DISTRIBUTION WIDTH CV 17.3 % (11.5-14.5); RED CELL DISTRIBUTION WIDTH SD 46.3 fL (36.4-46.3); WHITE BLOOD COUNT 5.58 K/uL (4.8-10.8)
[2017-07-11 13:32] LABS: PLATELET COUNT 140 K/uL (130-400)
[2017-07-11 13:33] LABS: BASO % 0.5 %; BASO ABS # 0.03 K/uL (0-0.2); EOS ABS # 0.11 K/uL (0-0.5); IG# 0.01 K/uL (0.00-0.02); LYMPH % 34.8 %; LYMPH ABS # 1.94 K/uL (1.2-3.4); MONO % 7.2 %; NEUT % 55.3 %; NEUT ABS # 3.09 K/uL (1.4-6.5)
[2017-07-11 13:35] LABS: ALT/SGPT 40 U/L (12-78); AST/SGOT 32 U/L (15-37); BLOOD UREA NITROGEN 25 mg/dl (7-18); CALCIUM 9.3 mg/dl (8.5-10.1); CARBON DIOXIDE 28 mmol/L (21-32); CREATININE 1.33 mg/dl (0.60-1.40); GLUCOSE 145 mg/dl (70-99); POTASSIUM 4.4 mmol/L (3.5-5.1); SODIUM 136 mmol/L (136-145)
[2017-07-11 13:39] LABS: ALKALINE PHOSPHATASE 48 U/L (45-117); CHOLESTEROL 108 mg/dl (0-200); LDL CHOLESTEROL CALCULATED 10 mg/dl; TOTAL PROTEIN 8.1 gm/dl (6.4-8.2)
== END | disposition home or self-care (01) ==
LOC: C.LABBC 09:15
PROVIDERS: ATTEND Internal Medicine Pulmonary Disease
DX: E11.9 Type 2 diabetes mellitus without complications (principal); I10 Essential (primary) hypertension; M10.9 Gout, unspecified; R97.20 Elevated prostate specific antigen [PSA]; E78.5 Hyperlipidemia, unspecified